=== PATIENT | male | born 1955 | race Caucasian/White ===

== ENCOUNTER → 2017-10-31 | Outpatient (CLI) | payer OTHER ==
[~2017-10-31] VITALS: Ht 182.9 cm; Wt 108.9 kg
[~2017-10-31] MED LIST: ESTRADIOL 1 MG T1 M1 PO; LISINOPRIL-HCT1 EAC2 PO; LOPRESSOR50 MG PO; METHADONE HCL 110 M1 PO; MOBIC15 MG PO; MOBIC7.5 MG PO; NEURONTIN 300300 M1 PO; OXYCODONE HCL15 MG PO; OXYCONTIN10 M1 PO; OXYMORPHONE HCL10 M1 PO; PROPRANOLOL 1010 MG PO; PROTONIX40 M1 PO; ROBAXIN 750 MG750 M1 PO; VISTARIL 25 MG25 M1 PO; ZANAFLEX4 MG PO
--- NOTE | ~2017-10-31 | HPC ---
[facility] [place] [address] PAIN MANAGEMENT CONSULTATION Name: COSMO HANNA JR Room #: REG [facility] MAlbino.#: [id number] Admission: 10/31/17 Attend Phys: Gadiel Mercedes DO Discharge: Date of : 54 Report #: [id number] THIS REPORT FOR: //name// CC: MESERET White DATE OF SERVICE: 11/01/2017 The patient is a 62-year-old gentleman, seen in consultation at the request of Dr. Frank for assistance with management of chronic pain concerns and opiate habituation tolerance and maintenance. The patient presents to the Pain Clinic today. He has an extensive records from the pain management institute[facility], having been treated by Dr. Charanjit Oneill for a number of years with opiate analgesics. Unfortunately, as we have noted with a lot of these charts, they are somewhat "cookie cutter" type templates merely noting patient is on opiate analgesics, but really failing to provide any significant physical exam or diagnostic records. The patient states he has had chronic axial back pain with pain in the hip and right leg. He has not had any back surgery. He states he has done physical therapy "in the past." States he has had chiropractic therapy "in the past." He states he does some stretches daily. He states he has had cervical epidural injections in 2009 with no efficacy. Again, no records here. He states he has been on opiate analgesics for greater than 9 years. He has been using oxycodone 15 mg 4 times a day (60 mg short-acting oxycodone equivalent to 90 mg of morphine equivalence) for the past 4 years. With this, he rates his pain still anywhere from 3-10 on a VAS. States pain is exacerbated with walking, sitting, and sleeping. Gets some relief with stretching and pain medications. The patient denies any myelopathic symptoms. No bowel or bladder continence changes and no focal weakness. REVIEW OF SYSTEMS: Complete review of systems was attached to the chart and gone over with the patient. He is . He does not smoke or drink alcohol to excess. He states he has been disabled for the past 5 years, is on workers' compensation from "back pain." He has a history of hypertension, treated with lisinopril and metoprolol. He has history of renal lithiasis. He has had a left total hip arthroplasty in 2009. Pain impact score is fairly high, averaging 46/60. PHYSICAL EXAMINATION: Reveals a 6 feet tall, 240-pound gentleman, BMI is 32.5 kg/m2. Blood pressure 135/78, pulse 57, respirations 16. Again, subjective pain score present, is 5-6 on a VAS. Cranial nerves 2-12 are grossly intact. Pupils are reactive. Extraocular muscles are intact. There is [place] [address] PAIN MANAGEMENT CONSULTATION Name: COSMO HANNA Room #: REG TIFFANIE Ross#: [id number] Admission: 10/31/17 Attend Phys: Gadiel Mercedes DO Discharge: Date of : 53 Report #: [id number] lateral gaze deviation. Cervical range of motion is full. Thyroid is unremarkable. Upper extremity strength is fairly robust and symmetric. Heart is regular and rhythmical without murmur. Lungs: Clear to auscultation. Rises from chair using armrest. He has a moderately antalgic gait, self-limits flexion to 45 degrees. Diffuse tenderness across the low back. No discrete trigger points or spasm is noted. Tender over the right SI. Lower extremity strength is 4/5 to all muscle groups tested. Patellar reflexes are symmetric, 2/4. Achilles reflexes are symmetric, 1/4. Straight leg raise is negative at approximately 90 degrees. SHERYL test is negative. Passive rotation of the hips does exacerbate some pain in the anterior thigh and groin. DIAGNOSTIC STUDIES: The only diagnostic study that I can find is somewhat dated. The patient had MRI of the lumbar spine in 2009 showing DJD at L2-L3, L3-L4 with facet hypertrophy. Did have a small right HNP at L4-L5, does not correlate with right L4 radicular symptoms at this time. MRI of the hip had showed mild to moderate DJD. ASSESSMENT: Chronic axial back pain, lumbar radiculopathy by history, chronic pain syndrome, possible component of myofascial pain requiring high-risk complex medication management, opiate habituation and tolerance. RECOMMENDATIONS: Long discussion with the patient today about therapeutic options. I pointed out that chronic use of short-term opiates are contraindicated in chronic nonmalignant pain with zero objective diagnostic data. Again, physical exam is fortunately quite unremarkable other than for subjective pain. The patient currently is habituated to approximately 90 mEq of morphine a day. Suggested we could rotate to methadone, which may avoid some of the dopamine release seen with short-acting opiates precipitating habituation. Rough equivalent at 4:1 conversion of methadone to morphine would be 22 mg of methadone. I suggest we start at methadone 10 mg b.i.d. We will get a buccal drug swab today, should be positive for hydrocodone as the sole opiate, should be no nicotine or other controlled agents present. The patient has been using Robaxin for some time. I will renew that prescription today, though he may benefit from a rotation to tizanidine. Currently, methocarbamol 750 t.i.d. prescription was generated. At next visit, we may consider addition of Cymbalta to help with myofascial component of pain. After patient left the clinic, I did get a call from the pharmacy. He was attempting to fill the methadone prescription. Unbeknownst to me, he had actually had his last oxycodone 15 mg, #120 tablets filled on 10/16/2017. I asked the pharmacy to hold the methadone prescription to 11/16/2017. I would like to see him about 4 weeks after starting the methadone. We will recheck a buccal swab at that time should be positive for methadone as a sole opiate. [facility] [address] [place] [address] PAIN MANAGEMENT CONSULTATION Name: COSMO HANNA [id number] Admission: 10/31/17 Attend Phys: Gadiel Mercedes DO Discharge: Date of : 53 Report #: [id number] Thank you for allowing me to participate in the patient's care. We did enter into an opiate consent to treat contract with the patient today. He should not be getting opiates from any other healthcare providers. <ELECTRONICALLY SIGNED> By: Gadiel Mercedes DO 11/03/17 0715 1230 [id number] Gadiel Mercedes DO /nt
[2017-10-31 13:57] VITALS: BP 135/78
== END ==
LOC: PAIN 08:23
DX: M54.16 Radiculopathy, lumbar region (principal); G89.4 Chronic pain syndrome; M79.1 Myalgia; F11.20 Opioid dependence, uncomplicated; Z79.899 Other long term (current) drug therapy

== ENCOUNTER → 2017-12-12 | Outpatient (CLI) | payer OTHER ==
[~2017-12-12] VITALS: Ht 180.3 cm; Wt 111.0 kg
--- NOTE | ~2017-12-12 | HPC ---
[facility] [address] [place] [address] PAIN MANAGEMENT CONSULTATION Name: COSMO HANNA JR Room #: REG TIFFANIE M.Marshal.#: [id number] Admission: 12/12/17 Attend Phys: Wilfrid Butterfield MD Discharge: Date of : 53 Report #: [id number] THIS REPORT FOR: //name// CC: MESERET Fernandez DATE OF SERVICE: 12/12/2017 CHIEF COMPLAINT: Here for medication renewal. FOLLOWUP HISTORY: The patient is a 62-year-old gentleman who has been seen in the Pain Clinic because of chronic axial back pain, history of lumbar radiculopathy, and myofascial pain. He has been treated with opioid medications for this condition. Pain has been problematic since 1986. He describes it as constant, aching spasms, occasionally radiating throughout his entire body. Walking is problematic. Sitting and sleeping positions can be things that exacerbate his pain. Notes that stretching and use of medications is beneficial. He has had physical therapy in the past. He tries daily stretching. He has used chiropractic treatment. He also has some hip pain. He had been treated in the past because of sciatica. He has seen Dr. Gadiel Mercedes. He has been provided medications at the last visit. He returns today for renewal of his medications. He states that he has been on opioid therapy for at least 9 to 10 years. ALLERGIES: PENICILLIN. MEDICATIONS: Protonix 40 mg 1 p.o. daily, methadone 10 mg p.o. b.i.d., methocarbamol 750 mg t.i.d., lisinopril/hydrochlorothiazide 20/25 b.i.d., metoprolol 50 mg 0.5 tabs b.i.d. CLINICAL PAIN ASSESSMENT: 1. The patient is not being treated specifically for osteoarthritis or rheumatoid arthritis. 2. Height 5 feet 11 inches, weight 244 pounds, BMI is 34. 3. Vital signs: Blood pressure 143/83, pulse 52, respiratory rate 16, room air saturation 97%. 4. Pain intensity: 10. 5. Fall risk: The patient has not fallen in the last month. 6. Blood thinner: The patient is not on a blood thinner. 7. History of hypertension: The patient is being treated for hypertension. 8. Opioid therapy greater than 6 weeks: The patient has been on opioid therapy, he states, for about 9 years. 9. Risk assessment tool. 10. Functional assessment tool. 11. Recreational drug use: The patient [place] [address] PAIN MANAGEMENT CONSULTATION Name: COSMO HANNA Room #: REG [facility]#: [id number] Admission: 12/12/17 Attend Phys: Wilfrid Butterfield MD Discharge: Date of : 53 Report #: [id number] 12. Tobacco: The patient is a former smoker. 13. Alcohol use: The patient denies frequent alcohol use. PHYSICAL EXAMINATION: GENERAL: The patient is a well-developed, white male. He appears his stated age. ORIENTATION: The patient is alert and oriented x 3. AFFECT: The patient's affect appears appropriate. HEENT: Normocephalic, atraumatic. Extraocular eye muscles intact. Hearing is within normal limits. Sclerae are clear. NECK: Without JVD. HEART: Regular rate. ABDOMEN: Nontender. MUSCULOSKELETAL: Appears generally within normal limits without significant kyphosis, scoliosis or lordosis. The patient arises from his chair using armrest. He has a moderately antalgic gait. SHERYL test negative. IMPRESSION: 1. Chronic pain with back pain and arm pain with some numbness in the fingers. 2. Hypertension. 3. Cervical pain with MRI showing [id number] foraminal narrowing at multiple levels. 4. Low back pain with multilevel degenerative processes with possible acute annular tear involving L2-L3 disk, degenerative changes prominent at L4-L5 level with mild spinal stenosis. RECOMMENDATIONS: We discussed treatment options with the patient. He states his medication has continued to be helpful. States he keeps his medications in a guarded area. He is aware of the use of opioids and they are prominent in the news. States that he is keeping his medications in a guarded area, he uses them for pain control. Denies getting medication from any other physician. Denies any problem with thinking, problems with GI affecting the gastrointestinal tract. Overall, he would like to have his medications renewed and agrees to the stipulations of the Pain Clinic. We have renewed his medications. A script for Mobic 15 mg 1 p.o. daily, methadone 10 mg b.i.d., and Robaxin 750 mg 1 p.o. t.i.d. have been written. He will call us if he has any problems with his medications. We would like to thank you for letting us participate in his care. We hope he continues to improve. <ELECTRONICALLY SIGNED> By: Wilfrid Butterfield MD 01/07/18 0851 [id number] [id number] Wilfrid Butterfield MD /nt
[2017-12-12 11:36] VITALS: BP 143/83
== END ==
LOC: PAIN 11-24 13:43
DX: G89.29 Other chronic pain (principal); M48.061 Spinal stenosis, lumbar region without neurogenic claudication; M47.896 Other spondylosis, lumbar region; F11.90 Opioid use, unspecified, uncomplicated; I10 Essential (primary) hypertension

== ENCOUNTER → 2018-01-16 | Outpatient (CLI) | payer OTHER ==
[~2018-01-16] VITALS: Ht 154.9 cm; Wt 108.0 kg
--- NOTE | ~2018-01-16 | HPC ---
[facility] [address] [address] PAIN MANAGEMENT CONSULTATION Name: COSMO HANNA JR Room #: REG [facility].#: [id number] Admission: 01/16/18 Attend Phys: Gadiel Mercedes DO Discharge: Date of : 53 Report #: [id number] THIS REPORT FOR: //name// CC: MESERET Mercedes DATE OF SERVICE: 01/16/2018 The patient is a 62-year-old gentleman originally seen in consultation 10/31/2017 on higher dose opiate analgesics including oxycodone 15 mg 4 times a day for the past 4 years. Ultimately, I elected to rotate to methadone 10 mg b.i.d. The patient returns to pain clinic today, doing well on current medication. He uses half a tablet in the morning (5 mg), 5 mg late afternoon and 10 mg at bedtime. He is doing well on his current medication. Denies any problems with daytime somnolence, mental acuity changes, constipation. Notes his pain is a 4 on VAS. Primary pain across the low back, exacerbated with standing, walking and bending. Does not use an assistance device (cane or walker). PHYSICAL EXAMINATION: Shows a 62-year-old gentleman, BMI is elevated at 45 kilograms per meter squared. Vital signs stable as noted in the EMR. Subjective pain score is 4 on VAS. Medication list was reconciled. We had signed an opiate consent to treat contract 11/01/2017. Functional assessment tool score is 51/70. Rises from chair using armrest. Diffuse tenderness across the low back, modestly antalgic gait. No discrete trigger points noted. ASSESSMENT: Symptomatic axial back pain, lumbar radiculopathy requiring complex medication management. RECOMMENDATION: 1. We will check a random buccal drug swab today. It should be positive for methadone as the sole opiate. 2. Renew methadone 10 mg b.i.d. The patient has some muscle spasm. We talked about adding Robaxin as a muscle relaxant. Unfortunately, this was quite costly. I did have the nurse call in baclofen 10 mg t.i.d. for spasm. We reviewed the fact that opiate medications are being used to provide analgesia adequate to support activities of daily living, not attempting to achieve a specific pain score on the 0-10 Visual Analog Scale. The current opiate medications are providing sufficient analgesia to allow the patient to participate in activities of daily living. The patient is not exhibiting any aberrant behavior suggestive of drug diversion. The patient is not having any adverse reactions to medications. The patient is not suffering from daytime somnolence or mental acuity changes. The patient is managing opiate-induced constipation with appropriate jndw-nem-hbxguty agents and dietary considerations. The patient was counseled on concern for caution with operating [address] [address] PAIN MANAGEMENT CONSULTATION Name: COSMO HANNA Room #: REG [facility] Vandana#: [id number] Admission: 01/16/18 Attend Phys: Gadiel Mercedes DO Discharge: Date of : 53 Report #: [id number] a motor vehicle while using opiate medications. A physical exam was performed and the patient's functional status was evaluated. All patients with back pain were advised against the bed rest greater than 4 days and were advised to return to normal activities. Pain score assessment was noted and the treatment plan was reviewed with the patient. All current medications, both prescribed and OTC were reviewed and reconciled on the electronic medical record. Tobacco screening was accomplished and smoking cessation was advised when indicated. BMI was noted and diet/exercise modification was recommended for all patients following outside normal parameters. I reviewed with the patient today their responsibilities to safeguard prescription medications, reviewed their responsibility to utilize medications only as prescribed by the physician. They are to seek and receive pain medications only from 1 physician group ( [facility]). They are to use 1 pharmacy and keep the clinic informed if they change pharmacies. Their responsibilities include making followup visits in a timely fashion and to avoid abrupt discontinuation of medication usage. Their responsibilities further include bringing their medications (bottles from the pharmacy with residual pills) to the visit for possible confirmation of pill counts and the patient understands it is their responsibility to submit to random drug screens to ensure both that the medications prescribed are present, and that no other controlled substances are present. All prescriptions provided today were generated electronically. <ELECTRONICALLY SIGNED> By: Gadiel Mercedes DO 01/17/18 0954 1231 19 Gadiel Mercedes DO /nt
[2018-01-16 10:37] VITALS: BP 138/78
== END ==
LOC: PAIN 07:16
DX: M54.16 Radiculopathy, lumbar region (principal); Z79.899 Other long term (current) drug therapy

== ENCOUNTER → 2018-03-13 | Outpatient (CLI) | payer OTHER ==
[~2018-03-13] VITALS: Ht 177.8 cm; Wt 103.0 kg
--- NOTE | ~2018-03-13 | HPC ---
[facility] [address] [place] [address] PAIN MANAGEMENT CONSULTATION Name: COSMO HANNA JR Room #: REG [facility] M..#: [id number] Admission: 03/13/18 Attend Phys: Gadiel Mercedes DO Discharge: Date of : 53 Report #: [id number] THIS REPORT FOR: //name// CC: MESERET RYDER Physician staff Gadiel Mercedes DATE OF SERVICE: 03/13/2018 The patient is a 62-year-old gentleman being treated for chronic axial back pain, history of polycystic kidney disease precluding NSAID use, history of hepatitis C. Came to me on higher dose opiates, consultation on 10/31/2017. He was using oxycodone 15 mg 4 times a day equivalent to approximately 90 mg of morphine. We rotated to methadone, currently taking methadone 10 mg b.i.d. (roughly equivalent 80 mg of morphine) and he takes Robaxin 750 t.i.d. for muscle relaxation. Last random drug screen on 01/16/2018 was positive for prescribed medications and no others. Returns to Pain Clinic today noting pain continues to be problematic, did have acute exacerbation of some right-sided low back pain without antecedent trauma. Radiates in the buttock and posterior thigh, really not down the leg. Rates the pain a 5-6 on a VAS. No problems with daytime somnolence, mental acuity changes, or constipation. We reviewed the fact that opiate medications are being used to provide analgesia adequate to support activities of daily living, not attempting to achieve a specific pain score on the 0-10 Visual Analog Scale. The current opiate medications are providing sufficient analgesia to allow the patient to participate in activities of daily living. The patient is not exhibiting any aberrant behavior suggestive of drug diversion. The patient is not having any adverse reactions to medications. The patient is not suffering from daytime somnolence or mental acuity changes. The patient is managing opiate-induced constipation with appropriate fkfg-uvi-dvfqlxh agents and dietary considerations. The patient was counseled on concern for caution with operating a motor vehicle while using opiate medications. A physical exam was performed and the patient's functional status was evaluated. All patients with back pain were advised against the bed rest greater than 4 days and were advised to return to normal activities. Pain score assessment was noted and the treatment plan was reviewed with the patient. All current medications, both prescribed and OTC were reviewed and reconciled on the electronic medical record. Tobacco screening was accomplished and smoking cessation was advised when indicated. BMI was noted and diet/exercise modification was recommended for all patients following outside normal parameters. [address] [address] PAIN MANAGEMENT CONSULTATION Name: COSMO HANNA JR Room #: REG [facility] Vandana#: [id number] Admission: 03/13/18 Attend Phys: Gadiel Mercedes DO Discharge: Date of : 53 Report #: [id number] I reviewed with the patient today their responsibilities to safeguard prescription medications, reviewed their responsibility to utilize medications only as prescribed by the physician. They are to seek and receive pain medications only from 1 physician group ( [facility]). They are to use 1 pharmacy and keep the clinic informed if they change pharmacies. Their responsibilities include making followup visits in a timely fashion and to avoid abrupt discontinuation of medication usage. Their responsibilities further include bringing their medications (bottles from the pharmacy with residual pills) to the visit for possible confirmation of pill counts and the patient understands it is their responsibility to submit to random drug screens to ensure both that the medications prescribed are present, and that no other controlled substances are present. All prescriptions provided today were generated electronically. PHYSICAL EXAMINATION: Shows 62-year-old gentleman, BMI is 32.6 kg/m2. Vital signs stable as noted in the EMR. Rises from chair using the armrest. Gait is generally tandem, very tender over the right SI. Has a positive SHERYL and Gaenslen's test on the right side. Left side exam was deferred due to history of total hip arthroplasty. Lower extremity strength is preserved. Straight leg raise is negative. ASSESSMENT: Symptomatic chronic axial back pain, new diagnosis of right SI mediated pain, requiring complex medication management. Comorbidity includes hepatitis C and polycystic kidney disease. RECOMMENDATIONS: After discussion with the patient, he would like to continue methadone 10 mg b.i.d. I have taken the liberty of writing for 2 months of current medication, Robaxin 750 t.i.d., and rare use meloxicam 7.5 on a nondaily basis. I have taken the liberty of writing for 2 months of current medication. Follow up with one of my Pain partners at that time, earlier if needed. We did talk about moving forward with SI joint injection (right side) today. The patient would like to defer interventional therapy at this time. He tells me he prior had many epidural injections at another pain clinic, all with no efficacy. <ELECTRONICALLY SIGNED> By: Gadiel Mercedes DO 03/16/18 0710 1231 [id number] Gadiel Mercedes DO /nt
[2018-03-13 10:51] VITALS: BP 135/75
== END ==
LOC: PAIN 06:48
DX: M54.5 Low back pain (principal); Z79.899 Other long term (current) drug therapy

== ENCOUNTER → 2018-05-13 | Outpatient (CLI) | payer OTHER ==
[~2018-05-13] VITALS: Ht 177.8 cm; Wt 104.4 kg
--- NOTE | ~2018-05-13 | HPC ---
[facility] [address] [place] [address] PAIN MANAGEMENT CONSULTATION Name: COSMO HANNA JR Room #: REG [facility] M.R.#: [id number] Admission: 05/13/18 Attend Phys: Juan Antonio Mercedes DO Discharge: Date of : 53 Report #: [id number] THIS REPORT FOR: //name// CC: Juan Antonio Frank DO Physician staff DATE OF SERVICE: 05/13/2018 CHIEF COMPLAINT: Low back pain. HISTORY OF PRESENT ILLNESS: As you know, the patient is a 62-year-old male with longstanding history of chronic axial back pain who was originally referred to our service on extremely high dose of opioids. The patient has successfully been weaned down to just under the CDCs recommended guidelines for maximum dosing. He is taking methadone 10 mg twice a day, which equates to 60 morphine equivalents a day and continues to utilize meloxicam meth and methocarbamol for as needed pain issues. He returns today in followup visit requesting refill on medications. Despite this elevated dose of opioid medication, he is placing pain score 5-6/10. He has noted no changes in his functional capacity with the medications. He indicates no change in overall pain. He returns requesting refill on medications. ALLERGIES: PENICILLIN. CURRENT MEDICATIONS: Methadone 10 mg twice a day, methocarbamol 750 mg 3 times a day p.r.n., pantoprazole 10 mg 2 tabs twice a day, meloxicam 7.5 mg once a day, lisinopril/hydrochlorothiazide 20/25 twice a day. SOCIAL HISTORY: The patient denies tobacco, alcohol, IV or illicit drug use. 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 He is accompanied by his who is present in room today. IMAGING: There is no new imaging available. K-TRACS was completed, both on the [place] side and [place] side; it does show positive for methadone, received appropriately by Dr. Gadiel Mercedes for the past four months. PHYSICAL EXAMINATION: VITAL SIGNS: Blood pressure 145/79, pulse is 52, respiratory rate 14 and unlabored. The patient is 98% on room air. Height 5 feet 10 inches tall, weight 230.2 pounds, BMI calculated 33.0. GENERAL: Well-developed, well-nourished, well-hydrated 62-year-old male, appears much older than stated age, placing current pain score at 5-6/10. [facility] [address] [place] [address] PAIN MANAGEMENT CONSULTATION Name: COSMO HANNA JR Room #: REG [facility]#: [id number] Admission: 05/13/18 Attend Phys: Juan Antonio Mercedes DO Discharge: Date of : 53 Report #: [id number] HEENT: Normocephalic, atraumatic. Pupils equal, round, reactive to light. Speech fluent. EXTREMITIES: Show no clubbing, no cyanosis, no edema. MUSCULOSKELETAL: Gait appears normal. Positive Fabere's sign and Modified Gaenslen's on the right. Left side is normal. There is well-healed surgical scar from total hip arthroplasty. Palpatory tenderness over the paraspinal musculature. No spinous process tenderness. ASSESSMENT: 1. Symptomatic chronic axial back pain. 2. Sacroiliac joint dysfunction. 3. Opioid dependency. PLAN: 1. The patient returns today in followup visit for continuation of medication therapy. He is currently taking methadone 10 mg twice a day, equates to 60 morphine equivalents a day, also taking methocarbamol and meloxicam. He has requested refills on this medication be provided today. 2. The patient was provided prescription of methadone 10 mg dose 1 tab p.o. b.i.d., number 60, releases today. 3. The patient was provided a prescription of methocarbamol 750 mg dose 1 tab p.o. t.i.d., I have given the patient number 90, no refills. 4. The patient was provided refill prescription of meloxicam 7.5 mg once a day, number 30, no refills. 5. We will see the patient back in followup visit next month. He is to discuss with his primary care physician the likelihood that they will need to take over medication management in the very near future as we have stabilized the patient on the medication. He will discuss this with his PCP. Need to find someone to write mcfp opioid medication as this does not require a pain specialist to provide these kind of medications. We are here to adjust the medications. We reviewed the fact that opiate medications are being used to provide analgesia adequate to support activities of daily living, not attempting to achieve a specific pain score on the 0-10 Visual Analog Scale. The current opiate medications are providing sufficient analgesia to allow the patient to participate in activities of daily living. The patient is not exhibiting any aberrant behavior suggestive of drug diversion. The patient is not having any adverse reactions to medications. The patient is not suffering from daytime somnolence or mental acuity changes. The patient is managing opiate-induced constipation with appropriate ztqb-pnh-xlmokmz agents and dietary considerations. The patient was counseled on concern for caution with operating a motor vehicle while using opiate medications. A physical exam was performed and the patient's functional status was evaluated. All patients with back pain were advised against the bed rest greater than 4 days and were advised to return to normal activities. Pain score assessment was [facility] [address] [place] [address] PAIN MANAGEMENT CONSULTATION Name: COSMO HANNA JR Room #: REG [facility] Renetta.Marshal.#: [id number] Admission: 05/13/18 Attend Phys: Juan Antonio Mercedes DO Discharge: Date of : 53 Report #: [id number] noted and the treatment plan was reviewed with the patient. All current medications, both prescribed and OTC were reviewed and reconciled on the electronic medical record. Tobacco screening was accomplished and smoking cessation was advised when indicated. BMI was noted and diet/exercise modification was recommended for all patients following outside normal parameters. I reviewed with the patient today their responsibilities to safeguard prescription medications, reviewed their responsibility to utilize medications only as prescribed by the physician. They are to seek and receive pain medications only from 1 physician group ( [facility]). They are to use 1 pharmacy and keep the clinic informed if they change pharmacies. Their responsibilities include making followup visits in a timely fashion and to avoid abrupt discontinuation of medication usage. Their responsibilities further include bringing their medications (bottles from the pharmacy with residual pills) to the visit for possible confirmation of pill counts and the patient understands it is their responsibility to submit to random drug screens to ensure both that the medications prescribed are present, and that no other controlled substances are present. All prescriptions provided today were generated electronically. By: [id number] Juan Antonio Mercedes DO /nt
[2018-05-13 11:15] VITALS: BP 145/79
== END ==
LOC: PAIN 07:02
DX: M54.5 Low back pain (principal); M53.3 Sacrococcygeal disorders, not elsewhere classified; G89.29 Other chronic pain; F11.20 Opioid dependence, uncomplicated; Z79.899 Other long term (current) drug therapy

== ENCOUNTER → 2018-06-23 | Outpatient (CLI) | payer OTHER ==
[~2018-06-23] VITALS: Ht 177.8 cm; Wt 100.2 kg
--- NOTE | ~2018-06-23 | HPC ---
[facility] [address] [place] [address] PAIN MANAGEMENT CONSULTATION Name: COSMO HANNA JR Room #: REG [facility] M..#: [id number] Admission: 06/23/18 Attend Phys: Juan Antonio Mercedes DO Discharge: Date of : 53 Report #: [id number] THIS REPORT FOR: //name// CC: Juan Antonio Frank DO Physician staff DATE OF SERVICE: 06/23/2018 REFERRING PHYSICIAN: May Frank D.O. CHIEF COMPLAINT: Right shoulder pain and chronic low back pain. HISTORY OF PRESENT ILLNESS: As you know, the patient is a 63-year-old male who has returned today in followup visit to undergo right intra-articular shoulder injection under fluoroscopic guidance. The patient has had longstanding right shoulder pain treated with physical therapy and medication management. Unfortunately, his symptoms have progressed. He returns to undergo a right intra-articular shoulder injection today in hopes of improving pain. He indicates pain is dull, aching, grinding in sensation, places current pain score at 8/10 and states pain is exacerbated with picking up objects with his right arm. Medications, stretching appears to improve pain mildly. He has returned today to undergo right intra-articular shoulder injection in hopes of improving right shoulder pain. ALLERGIES: PENICILLIN. CURRENT MEDICATIONS: Methadone 10 mg twice a day, methocarbamol 750 mg t.i.d., pantoprazole 10 mg 2 tabs 3 times a day, Meloxicam 7.5 mg once a day and lisinopril/hydrochlorothiazide 20/12.5 mg twice a day. SOCIAL HISTORY: The patient denies tobacco, alcohol or IV or illicit drug use. 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 IMAGING DATA: No new imaging available. PHYSICAL EXAMINATION: VITAL SIGNS: Blood pressure 129/77, pulse 54 and respiratory rate 18 and unlabored. The patient is 97% on room air. Height 5 feet 10 inches tall, weight 220.8 pounds and BMI calculated 31.7. GENERAL: Well-developed, well-nourished, well-hydrated, 63-year-old male. He appears his stated age. He is placing pain score today 8/10. HEENT: Normocephalic and atraumatic. Pupils equal, round and reactive to light. EXTREMITIES: Show no clubbing, no cyanosis and no edema. [address] [address] PAIN MANAGEMENT CONSULTATION Name: COSMO HANNA JR [facility] [id number] Admission: 06/23/18 Attend Phys: Juan Antonio Mercedes DO Discharge: Date of : 53 Report #: [id number] MUSCULOSKELETAL: Upper extremity strength appears equal and symmetrical, 5/5. Active and passive range of motion of right shoulder is met with intensification of pain. There is limited range of motion of the right shoulder secondary to pain generation. ASSESSMENT: 1. Right shoulder pain. 2. Right shoulder osteoarthritis. PLAN: 1. The patient has returned today in followup visit to discuss treatment options for right shoulder pain. We have received authorization for the patient to undergo an intra-articular shoulder injection in hopes of improving pain. The patient and I discussed at length the risks of this procedure. These risks include but are not necessarily limited to bleeding, bruising, infection, worsening pain, no relief of pain, also risk of temporary or permanent muscle weakness, temporary or permanent nerve damage, possible joint destruction and . The patient states understood and wished to proceed. 2. No medication changes made at today's visit. The patient to continue current medical therapy as previously prescribed. 3. We will see the patient back in followup visit on an as needed basis for medication management on our established appointment date. He may return earlier if he wishes to undergo next in the series of right intra-articular shoulder injections. PROCEDURE NOTE DESCRIPTION OF PROCEDURE: Right intra-articular shoulder injection under fluoroscopic guidance. After obtaining written consent, the patient was taken back to fluoroscopy suite, placed in a supine position. Image intensifier/C-arm was brought into position over the right shoulder and AP imaging was obtained. The area was prepped and draped in aseptic fashion using chlorhexidine. A sterile marker was then placed over the injection site and the skin was anesthetized with 3 mL of 1% lidocaine utilizing a 27-gauge 1-1/4 inch needle. A 25-gauge 2-inch needle was then advanced into the right shoulder under fluoroscopic guidance. Needle was advanced until reaching the proximal head of the humerus. Needle was then retracted approximately 1 mm and aspiration noted to be negative for heme. After negative aspiration for heme, 0.4 mL of Omnipaque injected demonstrating excellent right shoulder arthrogram. After negative aspiration for heme, 3 mL of a solution containing 1 mL 40 mg per mL, 40 mg total triamcinolone, 2 mL bupivacaine 0.5% injected slowly. Needle retracted mcc, flushed with 1 mL of 1% lidocaine and removed. Sterile bandage placed over injection site. No new motor deficits present in the upper [facility] [address] [place] [address] PAIN MANAGEMENT CONSULTATION Name: COSMO HANNA JR Room #: REG [facility]#: [id number] Admission: 06/23/18 Attend Phys: Juan Antonio Mercedes DO Discharge: Date of : 53 Report #: [id number] extremity following the procedure. The patient tolerated procedure well, carefully escorted to recovery room in stable condition. No apparent complications. After meeting discharge criteria, the patient discharged home. <ELECTRONICALLY SIGNED> By: Juan Antonio Mercedes DO 06/30/18 [id number] Juan Antonio Mercedes DO /nt
[2018-06-23 12:31] VITALS: BP 129/77
== END | disposition home or self-care (01) ==
LOC: PAIN 07:16
DX: M19.011 Primary osteoarthritis, right shoulder (principal); G89.29 Other chronic pain; Z87.891 Personal history of nicotine dependence; Z88.0 Allergy status to penicillin; Z79.899 Other long term (current) drug therapy; M54.5 Low back pain

== ENCOUNTER → 2018-08-12 | Outpatient (CLI) | payer OTHER ==
[~2018-08-12] VITALS: Ht 177.8 cm; Wt 101.1 kg
--- NOTE | ~2018-08-12 | HPC ---
[facility] [address] [place] [address] PAIN MANAGEMENT CONSULTATION Name: COSMO HANNA JR Room #: REG [facility].#: [id number] Admission: 08/12/18 Attend Phys: Juan Antonio Mercedes DO Discharge: Date of : 53 Report #: [id number] THIS REPORT FOR: //name// CC: Juan Antonio Frank DO Physician staff DATE OF SERVICE: 08/12/2018 REFERRING PHYSICIAN: May Frank DO CHIEF COMPLAINT: Right shoulder pain, chronic low back pain. HISTORY OF PRESENT ILLNESS: As you know, the patient is a 63-year-old male, returning in followup visit having undergone a right intra-articular shoulder injection at our last visit. He reports about 100% improvement in overall pain lasting for nearly 3 weeks. Unfortunately, he has had a slow and progressive return of symptoms. He states his symptoms began with increasing activity. He is placing pain score 4/10. He states his pain is aching, dull, grinding and ice pick in sensation, exacerbated with sitting, standing, walking, picking up his right arm, lifting anything with his right arm. Medications and stretching tend to improve pain. He returns today in followup visit for refill of medication management for which he takes methadone 10 mg twice a day and utilizes methocarbamol for muscle spasming and meloxicam for anti-inflammatory effects. He is denying any side effects to the therapy at this time. ALLERGIES: PENICILLIN. CURRENT MEDICATIONS: Methadone 10 mg twice a day, methocarbamol 750 mg 3 times a day, pantoprazole 10 mg 2 tabs 3 times a day, meloxicam 7.5 mg once a day, lisinopril/hydrochlorothiazide 20/12.5 mg twice a day. SOCIAL HISTORY: The patient denies tobacco, alcohol, IV or illicit drug use. 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 He is accompanied by his present in room today. IMAGING: No new imaging available. PQRS: The patient has osteoarthritis in bilateral shoulders and low back. No rheumatoid arthritis, placing pain intensity 4/10. He is not a fall risk, has not had a fall in the last 3 months. He is not on blood thinners. He is treated for hypertension. He has been on opioids for greater than 6 weeks. He has a low risk for opioid addiction. Pain impact score 51/70, severe, interference of daily activities secondary to pain. [address] [address] PAIN MANAGEMENT CONSULTATION Name: COSMO HANNA JR Room #: REG [facility]#: [id number] Admission: 08/12/18 Attend Phys: Juan Antonio Mercedes DO Discharge: Date of : 53 Report #: [id number] PHYSICAL EXAMINATION: VITAL SIGNS: Blood pressure 125/81, pulse 55, respiratory rate 16 and unlabored. The patient is 97% on room air. Height 5 feet 10 inches tall, weight 222.9 pounds, BMI calculated 32.0. GENERAL: Well-developed, well-nourished, well-hydrated 63-year-old male, appears his stated age, placing current pain score around 4/10. HEENT: Normocephalic, atraumatic. Pupils equal, round, reactive to light. Speech fluent. EXTREMITIES: Show no clubbing, no cyanosis, no edema. MUSCULOSKELETAL: Upper extremity strength remains symmetrical 5/5. Active and passive range of motion of the right shoulder causes intensification of pain. There is limited range of motion due to pain generation on the right shoulder, negative left. ASSESSMENT: 1. Right shoulder pain. 2. Right shoulder osteoarthritis. 3. Chronic low back pain. 4. Osteoarthritis of the lumbar spine. 5. Chronic intractable pain. 6. Complicated medication therapy. PLAN: 1. The patient returns today in followup visit having noticed good efficacy with the intra-articular shoulder injection on the right. Unfortunately, his symptoms have begun to return. He is now placing pain score 4/10. We discussed with the patient that options for treatment remain the same as previous from the shoulder standpoint, medication management, limiting activity, intra-articular shoulder injections or surgical options. The patient at this time wishes to avoid surgery. We will continue medication therapy, but we will consider possible repeat right shoulder injection in the near future if his pain does continue to return to a level of 8/10. 2. The patient was provided a prescription of meloxicam 7.5 mg 1 tab p.o. q. day. I have given the patient #30 tablets with 2 refills, 3 months' worth of medication. The patient denies dyspepsia, worsening of blood pressure, lower extremity edema with its use. 3. The patient was provided prescription of methocarbamol 750 mg dose 1 tab p.o. t.i.d. p.r.n. muscle spasms, #90 with 2 refills. 4. The patient was provided prescription of methadone 10 mg dose 1 tab p.o. b.i.d. #60 with releases of today and 4 weeks from today, 2 months' worth of medication. The patient was advised to take the medication as directed. He is not to take this medication on an as needed basis. We reviewed the fact that opiate medications are being used to provide analgesia adequate to support activities of daily living, not attempting to achieve a specific pain score on the 0-10 Visual Analog Scale. The current opiate [facility] [address] [place] [address] PAIN MANAGEMENT CONSULTATION Name: COSMO HANNA JR Room #: REG [facility]#: [id number] Admission: 08/12/18 Attend Phys: Juan Antonio Mercedes DO Discharge: Date of : 53 Report #: [id number] medications are providing sufficient analgesia to allow the patient to participate in activities of daily living. The patient is not exhibiting any aberrant behavior suggestive of drug diversion. The patient is not having any adverse reactions to medications. The patient is not suffering from daytime somnolence or mental acuity changes. The patient is managing opiate-induced constipation with appropriate kgtb-peh-occdemr agents and dietary considerations. The patient was counseled on concern for caution with operating a motor vehicle while using opiate medications. A physical exam was performed and the patient's functional status was evaluated. All patients with back pain were advised against the bed rest greater than 4 days and were advised to return to normal activities. Pain score assessment was noted and the treatment plan was reviewed with the patient. All current medications, both prescribed and OTC were reviewed and reconciled on the electronic medical record. Tobacco screening was accomplished and smoking cessation was advised when indicated. BMI was noted and diet/exercise modification was recommended for all patients following outside normal parameters. I reviewed with the patient today their responsibilities to safeguard prescription medications, reviewed their responsibility to utilize medications only as prescribed by the physician. They are to seek and receive pain medications only from 1 physician group ( [facility]). They are to use 1 pharmacy and keep the clinic informed if they change pharmacies. Their responsibilities include making followup visits in a timely fashion and to avoid abrupt discontinuation of medication usage. Their responsibilities further include bringing their medications (bottles from the pharmacy with residual pills) to the visit for possible confirmation of pill counts and the patient understands it is their responsibility to submit to random drug screens to ensure both that the medications prescribed are present, and that no other controlled substances are present. All prescriptions provided today were generated electronically. 5. We will see the patient back in followup visit in 2 months for medication management, earlier if intra-articular shoulder injection is necessary. By: [id number] Juan Antonio Mercedes DO /nt
[2018-08-12 11:01] VITALS: BP 125/81
== END ==
LOC: PAIN 07:23
DX: M54.5 Low back pain (principal); M25.511 Pain in right shoulder; Z79.891 Long term (current) use of opiate analgesic; Z79.899 Other long term (current) drug therapy

== ENCOUNTER → 2018-10-07 | Outpatient (CLI) | payer OTHER ==
[~2018-10-07] VITALS: Ht 177.8 cm; Wt 101.2 kg
[2018-10-07 11:30] VITALS: BP 143/74
--- NOTE | 2018-10-07 11:33 | NUR ---
Pain Clinic Assessment: 1. History of Osteoarthritis: Not Applicable History of Rheumatoid Arthritis: Not Applicable 2. Height: 5 ft. 10 in. 177.8 cm. Weight: 223.0 lb. oz. 101.152 kg. Patient's BMI: 32.0 3. Vital Signs: BP: 143/74 Pulse: 54 Resp: 16 Temp: 02 Sat: 97 ECG Mon: 4. Pain Intensity: 4 5. Fall Risk: Dizziness: N Needs help standing or walking: N Fallen in the last 3 months: N Fall risk comments: 6. Patient on Blood Thinner: None 7. History of Hypertension: Y 8. Opioid Therapy greater than 6 weeks: Y Opiate Contract Signed: 10/31/17 9. Risk Assessment Tool Provided: LOW RISK 10/01 10. Functional Assessment Tool: 11. Recreational Drug Use: Never Drug Type: Tobacco Use: Former Smoker Tobacco Type: Amount or Packs/day: How Many Years: Alcohol Use: No Frequency: Quant:
--- NOTE | 2018-10-07 11:33 | NUR ---
Document wound assessment on appropriate Wound Pressure, Monitor intervention!
== END ==
LOC: PAIN 07:02
DX: M54.5 Low back pain (principal); M25.511 Pain in right shoulder; M25.512 Pain in left shoulder; Z79.899 Other long term (current) drug therapy

== ENCOUNTER → 2018-12-02 | Outpatient (CLI) | payer OTHER ==
[~2018-12-02] VITALS: Ht 177.8 cm; Wt 105.7 kg
[~2018-12-02] MED LIST changes: +REMERON 30 MG T30 M1 PO
[2018-12-02 11:04] VITALS: BP 169/94
--- NOTE | 2018-12-02 11:07 | NUR ---
Pain Clinic Assessment: 1. History of Osteoarthritis: Not Applicable History of Rheumatoid Arthritis: Not Applicable 2. Height: 5 ft. 10 in. 177.8 cm. Weight: 233.0 lb. oz. 105.688 kg. Patient's BMI: 33.4 3. Vital Signs: BP: 169/94 Pulse: 58 Resp: 18 Temp: 02 Sat: 99 ECG Mon: 4. Pain Intensity: 4 5. Fall Risk: Dizziness: N Needs help standing or walking: N Fallen in the last 3 months: N Fall risk comments: 6. Patient on Blood Thinner: None 7. History of Hypertension: Y 8. Opioid Therapy greater than 6 weeks: Y Opiate Contract Signed: 10/31/17 9. Risk Assessment Tool Provided: LOW RISK 1 10. Functional Assessment Tool: 11. Recreational Drug Use: Never Drug Type: Tobacco Use: Former Smoker Tobacco Type: Amount or Packs/day: How Many Years: Alcohol Use: No Frequency: Quant:
--- NOTE | 2018-12-08 07:52 | HPC ---
[facility] [address] [place] [address] PAIN MANAGEMENT CONSULTATION Name: COSMO HNANA JR Room #: REG [facility] M..#: [id number] Admission: 12/02/18 ������������������ Attend Phys: Juan Antonio Mercedes DO Discharge: ������������������ Date of : 53 Report #: [id number] THIS REPORT FOR: //name// CC: Juan Antonio Frank DATE OF SERVICE: 12/02/2018 CHIEF COMPLAINT: Right shoulder pain, chronic low back pain. HISTORY OF PRESENT ILLNESS: As you know, the patient is a 63-year-old male who returns today in followup visit with continued right shoulder pain secondary to osteoarthritis and progressively worsening axial back pain due to facet arthropathy of the lumbar spine. He returns today in followup visit stating pain level of 4/10. States his pain is chronic in nature, describes the pain as aching, dull, grinding and a sensation of ice pick in the right shoulder when utilizing this upper extremity. He states the standing, walking, sitting, picking up things with his arm exacerbates symptoms; medications and stretching tends to improve pain. He returns today requesting refill of medications to continue analgesic benefit for which he states he receives greater than 50% improvement. He denies new injury or trauma that may have led to continuation of symptoms. ALLERGIES: PENICILLIN. CURRENT MEDICATIONS: Methadone 10 mg twice a day, methocarbamol 750 mg 3 times a day, pantoprazole 10 mg 2 tabs 3 times a day, meloxicam 7.5 mg once a day, lisinopril/hydrochlorothiazide 20/12.5 mg b.i.d. SOCIAL HISTORY: The patient denies tobacco, alcohol, IV or illicit drug use. He is a retired environmental services assistant, he is retired about 5 years ago. He is unaccompanied today. IMAGING: No new imaging available. PQRS: The patient has known bilateral osteoarthritis and lumbar spine osteoarthritis. No rheumatoid arthritis. He is placing pain intensity today at 4/10. He is not a fall risk, has not had a fall in the last 3 months. He is not on blood thinners, but is treated for hypertension. He is on long-term opioid medication with a low opioid addiction potential. He is placing pain impact score 51/70, severe interference of daily activities secondary to pain. PHYSICAL EXAMINATION: VITAL SIGNS: Blood pressure 169/94, pulse is 58, respiratory rate 18 and unlabored. The patient is 99% on room air. Height 5 feet 10 inches tall, [facility] [address] [place] [address] PAIN MANAGEMENT CONSULTATION Name: COSMO HANAN JR Room #: REG [facility]#: [id number] Admission: 12/02/18 ������������������ Attend Phys: Juan Antonio Mercedes DO Discharge: ������������������ Date of : 53 Report #: [id number] weight 233 pounds, BMI calculated 33.4. GENERAL: Well-developed, well-nourished, well-hydrated 63-year-old male appearing stated age, placing current pain score 4/10. HEENT: Normocephalic, atraumatic. Pupils equal, round, reactive to light. Speech fluent. EXTREMITIES: Show no clubbing, no cyanosis, no edema. MUSCULOSKELETAL: Upper extremity strength and muscle bulk and tone are equal and symmetrical. He has slight giveaway strength noted with shoulder abduction on the right when compared to left. There is mild restriction of motion of the right shoulder when compared to left. Pain is elicited with rotational component of movement. Intact to light touch from L1 through S2 dermatomes. There is palpatory tenderness noted over the paraspinal musculature of lower lumbar spine, no spinous process tenderness. Seated straight leg raising negative. ASSESSMENT: 1. Right shoulder pain. 2. Right shoulder osteoarthritis. 3. Chronic low back pain. 4. Facet arthropathy of the lumbar spine. 5. Lumbosacral spondylosis without radicular symptoms. 6. Opioid dependency. 7. Complicated medication management. 8. Chronic intractable pain. PLAN: 1. The patient returns today in followup visit requesting continuation of his methadone for which he takes 2 tabs per day for pain control. This is in conjunction with his Robaxin appears to be doing very well from a pain standpoint. He takes meloxicam 7.5 mg once a day and has requested a 3-month prescription of this medication as well as Robaxin. He has returned for these adjustments in medication management. 2. We reviewed the fact that opiate medications are being used to provide analgesia adequate to support activities of daily living, not attempting to achieve a specific pain score on the 0-10 Visual Analog Scale. The current opiate medications are providing sufficient analgesia to allow the patient to participate in activities of daily living. The patient is not exhibiting any aberrant behavior suggestive of drug diversion. The patient is not having any adverse reactions to medications. The patient is not suffering from daytime somnolence or mental acuity changes. The patient is managing opiate-induced constipation with appropriate [id number] agents and dietary considerations. The patient was counseled on concern for caution with operating a motor vehicle while using opiate medications. A physical exam was performed and the patient's functional status was evaluated. All patients with back pain were advised against the bed rest greater than [address] [address] PAIN MANAGEMENT CONSULTATION Name: COSMO HANNA JR Room #: REG [facility]#: [id number] Admission: 12/02/18 ������������������ Attend Phys: Juan Antonio Mercedes DO Discharge: ������������������ Date of : 53 Report #: [id number] days and were advised to return to normal activities. Pain score assessment was noted and the treatment plan was reviewed with the patient. All current medications, both prescribed and OTC were reviewed and reconciled on the electronic medical record. Tobacco screening was accomplished and smoking cessation was advised when indicated. BMI was noted and diet/exercise modification was recommended for all patients following outside normal parameters. I reviewed with the patient today their responsibilities to safeguard prescription medications, reviewed their responsibility to utilize medications only as prescribed by the physician. They are to seek and receive pain medications only from 1 physician group ( [facility]). They are to use 1 pharmacy and keep the clinic informed if they change pharmacies. Their responsibilities include making followup visits in a timely fashion and to avoid abrupt discontinuation of medication usage. Their responsibilities further include bringing their medications (bottles from the pharmacy with residual pills) to the visit for possible confirmation of pill counts and the patient understands it is their responsibility to submit to random drug screens to ensure both that the medications prescribed are present, and that no other controlled substances are present. All prescriptions provided today were generated electronically. 3. The patient was provided prescription of methadone 10 mg dose 1 tab p.o. b.i.d. I have given the patient #60 releasing today and 4 weeks from today, 2 months' worth of medication. 4. The patient was provided a refill prescription of his Robaxin 750 mg dose 1 tab p.o. t.i.d. I have given the patient #270, which is a 3-month prescription. 5. The patient was provided a prescription of Mobic 7.5 mg once a day. I have given the patient #90 tablets, which is 3-month prescription. 6. We will see the patient back in followup visit in 3 months for medication management, earlier if interventional treatments need to be discussed. ��������������������������������������������� <ELECTRONICALLY SIGNED> ���������������������������������������� By: Juan Antonio Mercedes DO ��������������������������������������������� 12/08/18 0752 [id number] Juan Antonio Mercedes DO /nt
== END ==
LOC: PAIN 07:03
DX: M47.816 Spondylosis without myelopathy or radiculopathy, lumbar region (principal); M19.011 Primary osteoarthritis, right shoulder; Z79.891 Long term (current) use of opiate analgesic; Z88.0 Allergy status to penicillin

== ENCOUNTER → 2019-02-02 | Outpatient (CLI) | payer OTHER ==
[~2019-02-02] VITALS: Ht 177.8 cm; Wt 107.0 kg
[~2019-02-02] MED LIST changes: +GRALISE600 MG PO; +IBUPROFEN 800800 M1 PO; +NEURONTIN600 MG PO
[2019-02-02 13:42] VITALS: BP 149/92
--- NOTE | 2019-02-02 13:56 | NUR ---
Pain Clinic Assessment: 1. History of Osteoarthritis: Not Applicable History of Rheumatoid Arthritis: Not Applicable 2. Height: 5 ft. 10 in. 177.8 cm. Weight: 235.8 lb. oz. 106.958 kg. Patient's BMI: 33.8 3. Vital Signs: BP: 149/92 Pulse: 64 Resp: 18 Temp: 02 Sat: 100 ECG Mon: 4. Pain Intensity: 10 5. Fall Risk: Dizziness: N Needs help standing or walking: N Fallen in the last 3 months: N Fall risk comments: 6. Patient on Blood Thinner: None 7. History of Hypertension: Y 8. Opioid Therapy greater than 6 weeks: Y Opiate Contract Signed: 10/31/17 9. Risk Assessment Tool Provided: LOW RISK 1 10. Functional Assessment Tool: 11. Recreational Drug Use: Never Drug Type: Tobacco Use: Former Smoker Tobacco Type: Amount or Packs/day: How Many Years: Alcohol Use: No Frequency: Quant:
--- NOTE | 2019-02-09 07:40 | HPC ---
[facility] [address] [place] [address] PAIN MANAGEMENT CONSULTATION Name: COSMO HANNA JR Room #: REG [facility] M..#: [id number] Admission: 02/02/19 ������������������ Attend Phys: Juan Antonio Mercedes DO Discharge: ������������������ Date of : 53 Report #: [id number] THIS REPORT FOR: //name// CC: Juan Antonio Julio DATE OF SERVICE: 02/02/2019 CHIEF COMPLAINT: Low back pain, right lower extremity pain with paresthesias, chronic right shoulder pain. HISTORY OF PRESENT ILLNESS: As you know, the patient is a 63-year-old male who returns today in followup visit reporting pain now 10/10. He states about two weeks ago, he began to experience low back pain, right lower extremity pain with paresthesias he describes as numbness, tingling, burning, electrical and shooting in sensation. He denies injury or trauma that may have led to symptom occurrence. As you are aware, the patient has been treated for an extended period of time with my partner, Dr. Gadiel Mercedes for chronic low back pain and right shoulder pain for which the patient is taking methadone twice a day. He returns today in followup visit with concerns of increasing right leg pain. States he is unable to sleep or go about activities of daily living due to this ongoing pain issue. Again, the patient denies any specific injury or trauma that may have led to symptom occurrence. ALLERGIES: PENICILLIN. CURRENT MEDICATIONS: Methadone 10 mg twice a day, methocarbamol 750 mg 3 times a day, pantoprazole 10 mg 2 tabs 3 times a day, meloxicam 7.5 mg once a day, lisinopril/hydrochlorothiazide 20/12.5 mg 1 tab p.o. b.i.d. SOCIAL HISTORY: The patient denies tobacco, alcohol, IV or illicit drug use. 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 He is accompanied by his present in room today. IMAGING: There is no new imaging available. PQRS: The patient has known bilateral osteoarthritis of the lumbar spine and bilateral shoulders, right greater than left, no rheumatoid arthritis. He is placing pain intensity today 10/10. He is not a fall risk, has not had a fall in the last 3 months. He is not on blood thinners, but is treated for hypertension. He is on chronic opioids and has a low risk for opioid addiction. He is placing pain impact score 51/70, indicating severe interference of [place] [address] PAIN MANAGEMENT CONSULTATION Name: COSMO HANNA JR Room #: REG [facility].#: [id number] Admission: 02/02/19 ������������������ Attend Phys: Juan Antonio Mercedes DO Discharge: ������������������ Date of : 53 Report #: [id number] PHYSICAL EXAMINATION: VITAL SIGNS: Blood pressure 149/92, pulse 64, respiratory rate 18 and unlabored. The patient is 100% on room air. Height 5 feet 10 inches tall, weight 235.8 pounds, BMI calculated 33.8. GENERAL: Well-developed, well-nourished, well-hydrated 63-year-old male appearing stated age, placing current pain score 10/10. HEENT: Normocephalic, atraumatic. Pupils equal, round, reactive to light. Speech fluent. The patient deemed a fair historian. EXTREMITIES: Show no clubbing, no cyanosis, and no edema. MUSCULOSKELETAL: Lower extremity strength is equal and symmetrical 5/5 when comparing right lower extremity to left. There is giveaway strength noted with hip flexion, knee extension on the right due to pain generation involving the low back, buttock and radiating all the way to the foot. Seated straight leg raising positive right, supine straight leg raising positive right. Lima's test is negative. Modified Gaenslen's is positive for axial low back pain. Ankle clonus negative. Babinski is negative. Gait is antalgic favoring right lower extremity over left. Lumbar provocation testing is met with increasing overall pain. ASSESSMENT: 1. Symptomatic lumbar radiculopathy. 2. Lumbosacral spondylosis with radiculopathy. 3. Chronic low back pain with acute exacerbation. 4. Chronic right shoulder pain. PLAN: 1. The patient has returned today in followup visit with onset of what appears to be lumbar radiculopathy involving the right lower extremity. The patient states he suffered no injury or trauma. He states the pain began about two weeks ago and has continually worsened. He almost sought evaluation at the Emergency Department, but made an appointment with us to discuss treatment options. He comes to us with no imaging studies and no workup in regards to this ongoing pain issue. He returns to discuss options for treatment. 2. Based on the physical exam, history he provides, the description the patient uses in regards to pain as well as location. It does appear he is suffering from lumbar radiculopathy. We discussed treatment options for lumbar radiculopathy today. We discussed the following. We discussed physical therapy, stretching exercises, core strengthening as a treatment option. We discussed medication management, adding a neuropathic pain medication to his preexisting opioid management for other pain issues. We discussed lumbar epidural injection under fluoroscopic guidance, spinal cord stimulator therapy 3. We discussed physical therapy, stretching exercise, core strengthening. We also discussed medication management, adding a neuropathic pain medication to his preexisting opioid medication therapy. We discussed lumbar epidural injection under fluoroscopic guidance, spinal cord stimulator and surgical options. After reviewing the risks and benefits of all the proposed treatment [facility] [address] [place] [address] PAIN MANAGEMENT CONSULTATION Name: CUTCOSMO IZAGUIRRE [id number] Admission: 02/02/19 ������������������ Attend Phys: Juan Antonio Mercedes DO Discharge: ������������������ Date of : 53 Report #: [id number] options, the patient chose to move forward with epidural injection under fluoroscopic guidance. epidural injection under fluoroscopic guidance, spinal cord stimulator and surgical options. After reviewing the risks and benefits of all the proposed treatment options, the patient chose to move forward with epidural injection under fluoroscopic guidance. The patient was advised that [employer] pay[employer] restrictions require that authorization be obtained before the patient could undergo a lumbar epidural injection. Authorization could take anywhere from 4-7 working days. We will begin this process immediately and contact the patient once it has been completed. 4. We recommend strongly that the patient undergo x-ray imaging of the lumbar spine. There has been no imaging in regards to this new onset of pain without provocation and we wish to further evaluate. The patient will undergo the x-ray imaging this afternoon, we will review its findings. The patient underwent the x-ray imaging. We have reviewed the findings. It does show severe disk desiccation at L2-L3, L3-L4 and L4-L5, no evidence of compression fracture or spondylolisthesis. After reviewing this imaging, it was determined, we would need to see better the disk space than the nerve roots and thus, we will need an MRI of lumbar spine for further evaluation. will review its findings. The patient underwent the x-ray imaging. We have reviewed the findings. It does show severe disk desiccation at L2-L3, L3-L4 and L4-L5, no evidence of compression fracture or spondylolisthesis. After reviewing this imaging, it was determined, we would need to see better the disk space than the nerve roots and thus, we will need an MRI of lumbar spine for further evaluation. 5. The patient will be sent for MRI of the lumbar spine without contrast. X-ray imaging did show a severe disk desiccation at L2-L3, L3-L4, and L4-L5, which is concerning for possible central canal stenosis as well as potentially even neural foraminal stenosis as it is impossible from x-ray imaging to determine any type of disk deviation or lateralization. We recommend the patient undergo MRI of the lumbar spine as quickly as possible to further evaluate to determine if surgical options may be necessary. any type of disk deviation or lateralization. We recommend the patient undergo MRI of the lumbar spine as quickly as possible to further evaluate to determine if surgical options may be necessary. 6. We will start the preauthorization process for the patient to undergo a lumbar epidural injection. This may take up to 4-7 working days. We will begin this process immediately and contact the patient once this has been completed. and contact the patient once this has been completed. 7. I will start the patient on Gralise 600 mg tablet and then escalate as directed by the titration pack. This will be added to his current existing medication management for chronic pain. This will add a neuropathic component for coverage of his current radiculopathy. 600 mg tablet and then escalate as directed by the titration pack. This will be added to his current existing medication management for chronic pain. This will add a neuropathic component for coverage of his current radiculopathy. [address] [address] PAIN MANAGEMENT CONSULTATION Name: COSMO HANNA JR Room #: REG [facility]#: [id number] Admission: 02/02/19 ������������������ Attend Phys: Juan Antonio Mercedes DO Discharge: ������������������ Date of : 53 Report #: [id number] 8. We will see the patient back in followup visit once we have obtained the MRI and the preapproval for a lumbar epidural injection. ��������������������������������������������� <ELECTRONICALLY SIGNED> ���������������������������������������� By: Juan Antonio Mercedes DO ��������������������������������������������� 02/09/19 0740 0801 1937 Juan Antonio Mercedes DO /nt
== END | disposition home or self-care (01) ==
LOC: PAIN 06:55
DX: M47.27 Other spondylosis with radiculopathy, lumbosacral region (principal); G89.29 Other chronic pain; I10 Essential (primary) hypertension; Z88.0 Allergy status to penicillin; Z79.899 Other long term (current) drug therapy; Z87.891 Personal history of nicotine dependence

== ENCOUNTER → 2019-02-10 | Outpatient (CLI) | payer OTHER ==
[~2019-02-10] VITALS: Ht 177.8 cm; Wt 106.8 kg
[2019-02-10 10:07] VITALS: BP 144/97
--- NOTE | 2019-02-10 10:28 | NUR ---
Pain Clinic Assessment: 1. History of Osteoarthritis: Not Applicable History of Rheumatoid Arthritis: Not Applicable 2. Height: 5 ft. 10 in. 177.8 cm. Weight: 235.4 lb. oz. 106.777 kg. Patient's BMI: 33.8 3. Vital Signs: BP: 144/97 Pulse: 66 Resp: 16 Temp: 02 Sat: 97 ECG Mon: 4. Pain Intensity: 3 5. Fall Risk: Dizziness: N Needs help standing or walking: N Fallen in the last 3 months: N Fall risk comments: 6. Patient on Blood Thinner: None 7. History of Hypertension: Y 8. Opioid Therapy greater than 6 weeks: Y Opiate Contract Signed: 10/31/17 9. Risk Assessment Tool Provided: LOW RISK 1 10. Functional Assessment Tool: 11. Recreational Drug Use: Never Drug Type: Tobacco Use: Former Smoker Tobacco Type: Amount or Packs/day: How Many Years: Alcohol Use: No Frequency: Quant:
--- NOTE | 2019-02-11 07:52 | HPC ---
[facility] [address] [place] [address] PAIN MANAGEMENT CONSULTATION Name: COSMO HANNA JR Room #: REG [facility]..#: [id number] Admission: 02/10/19 ������������������ Attend Phys: Elin Townsend Discharge: ������������������ Date of : 53 Report #: [id number] THIS REPORT FOR: //name// CC: Elin Frank DATE OF SERVICE: 02/10/2019 CHIEF COMPLAINT: Low back pain, right lower extremity pain and paresthesias and chronic right shoulder pain. HISTORY OF PRESENT ILLNESS: This is a 59-year-old gentleman who returns to the pain clinic today for followup for trial of his Gralise medications that were started a couple of weeks ago by Dr. Juan Antonio Mercedes. He tells me that his pain score is 3/10 today, mostly in his lower back, right leg that radiates to his ankle and his right shoulder. He feels that the pain is worse with activity and the medications and stretching are helpful. He tells me that the Gralise samples that he has been taking, he is up to 2 peach tablets, which is 1200 mg at dinner, finds very helpful and has decreased his pain significantly. He tells me he also takes his methadone, which he finds very helpful. He does not have any problems with constipation or daytime sleepiness or side effects from his medications. The patient was scheduled to have an MRI and possible lumbar epidural steroid injection. The patient feels that he does not think he needs this since his pain has decreased significantly since trialing this Gralise. He had not been on any neuropathic medicines in the past. He thinks he has tried Cymbalta possibly, but not amitriptyline or Elavil or Neurontin in the past. ALLERGIES: PENICILLIN. MEDICATIONS: Gralise 600 mg 2 at dinner, methocarbamol 750 mg every 8 hours p.r.n., meloxicam 7.5 mg daily, methadone 10 mg b.i.d., Remeron 30 mg at bedtime, Inderal 10 mg b.i.d., Protonix 40 mg daily, lisinopril/hydrochlorothiazide 20/25 b.i.d. PQRS: 1. 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 2. Height is 5 feet 10 inches, weight is 235. BMI is 33. 3. Vital Signs: Blood pressure 149/92, pulse is 64, respirations 18, oxygen sat is 100. Pain score is 10/10. 4. Fall risk: Denies dizziness. Does not need help with walking or standing. He has not fallen in the last 3 months. 5. The patient is not on any blood thinners. [place] [address] PAIN MANAGEMENT CONSULTATION Name: COSMO HANNA Room #: REG [facility].#: [id number] Admission: 02/10/19 ������������������ Attend Phys: Elin Townsend Discharge: ������������������ Date of : 53 Report #: [id number] hypertension. 6. Opioid therapy is greater than 6 weeks; therefore, an opioid signed contract is on the chart. His risk assessment tool is low. Functional assessment is 51/70. 7. Recreational drug use he denies. He is a former smoker and does not drink alcohol. We did check the prescription monitoring system. The patient is filling appropriately for his medications. There is a drug screen on the chart in the past year. He tells me he does safeguards his medications. IMAGING: There is no new imaging available. We do have an order for an MRI, though uncertain if it should be done at this time. PHYSICAL EXAMINATION: GENERAL: This is a well-developed, well-nourished, well-hydrated 63-year-old gentleman who appears his stated age, placing his pain score today at 3/10, a significant decrease. HEENT: Normocephalic, atraumatic. Pupils equal, round and reactive to light. Speech is fluent. EXTREMITIES: No clubbing, no cyanosis, no edema. MUSCULOSKELETAL: Lower extremity strength is equal and symmetrical at 5/5 comparing his left to his right. Seated straight leg raising is positive. Supine straight leg raising positive. Gait is antalgic favoring his right lower extremity over his left. The patient does complain of right shoulder pain with flexion and extension and rotation of his shoulder. ASSESSMENT: 1. Symptomatic lumbar radiculopathy. 2. Lumbosacral spondylosis with radiculopathy. 3. Chronic low back pain with acute exacerbation. 4. Chronic right shoulder pain. 5. Management of high risk medications under terms of written opioid agreement. PLAN: 1. We discussed treatment options with the patient today. The patient tells me that the Gralise has been very beneficial. He tells me that he is having significant decrease in his pain. At previous appointment his pain score was 10, today it is 3/10 with taking two Gralise tablets at dinner. He would like to continue this medication. He feels like he is having no side effects, no sleepiness or overmedicated feeling. I explained to the patient that we would try a cheaper generic medication for him and see if this medicine is as beneficial. If not, then we would try to get an authorization for the Gralise tablets. The patient is agreeable with this plan of care. He tells me his did look up the cost of Gralise which is quite expensive and he is worried about covering the medication on their fixed income, but knew that it was very [facility] [address] [place] [address] PAIN MANAGEMENT CONSULTATION Name: CUTCOSMO IZAGUIRRE JR Room #: REG [facility]..#: [id number] Admission: 02/10/19 ������������������ Attend Phys: Elin Townsend Discharge: ������������������ Date of : 53 Report #: [id number] beneficial in decreasing his pain. I did speak with Dr. Juan Antonio Mercedes who saw the patient as well and we decided to prescribe Neurontin 600 mg q.i.d., #120. This is the equivalent dosing to his current Gralise dose. 2. Script was given for methadone 10 mg b.i.d. for today and 4-week release. The patient takes this with limited side effects and denies any problems with constipation. 3. We did discuss at great lengths regarding an MRI if it was needed or not. I encouraged the patient that I do not think that it is needed at this time of his lumbar spine. He tells me he is happy about that. He is worried about needing an MRI for his shoulder, which he is having ongoing issues and feels that is that is the worst pain right now since he has started this new medication and feels like he needs to get that taken care of and was worried about the cost associated with having two tests done. I explained to the patient to hold onto the script for his lumbar spine MRI in case it is needed or we can reorder it in the future, but for now to place that on hold. 4. The patient will follow up in 2-month time period for medication refills. The patient was seen with Dr. Juan Antonio Mercedes who saw the patient and collaborated care today. ��������������������������������������������� <ELECTRONICALLY SIGNED> ���������������������������������������� By: Elin Townsend ��������������������������������������������� 02/11/19 0752 [id number] Elin Townsend /jamil
== END ==
LOC: PAIN 06:56
DX: M47.27 Other spondylosis with radiculopathy, lumbosacral region (principal); G89.29 Other chronic pain; M25.511 Pain in right shoulder; Z79.891 Long term (current) use of opiate analgesic; Z79.899 Other long term (current) drug therapy

== ENCOUNTER → 2019-04-09 | Outpatient (CLI) | payer OTHER ==
[~2019-04-09] VITALS: Ht 170.2 cm; Wt 109.1 kg
[~2019-04-09] MED LIST changes: +DICLOFENAC SOD50 M1 PO; +ROBAXIN 750 MG750 MG PO
--- NOTE | ~2019-04-09 | HPC ---
[facility] [place] [place] [address] PAIN MANAGEMENT CONSULTATION Name: COSMO HANNA JR Room #: REG [facility].#: [id number] Admission: 04/09/19 ������������������ Attend Phys: Wilfrid Butterfield MD Discharge: ������������������ Date of : 53 Report #: [id number] THIS REPORT FOR: //name// CC: MESERET Reddy. Zac Butterfield DATE OF SERVICE: 04/09/2019 The patient complains of pain in lower back with pain that radiates down to his right lower extremity. He has had a history of paresthesias. Also, chronic right shoulder pain. He has returned to the Pain Clinic for medical management. HISTORY: The patient is a 59-year-old gentleman who has been followed in the pain clinic because of chronic pain. His pain has been problematic in his low back and radiates down into his right leg. He has pain in his ankle on the right side. Also, has a history of right shoulder pain. Notes that pain is worse with activities of daily living. He finds his medications were helpful in conjunction with stretching activity. He has been using Gralise. He finds that this has decreased his pain significantly. He also has been using methadone. Finds these medications have been helpful as well. He has had no problems with his bowel or bladder function at this point. He is able to think clearly. Overall, his medications he feels are beneficial. He has undergone an injection in the right shoulder. ALLERGIES: PENICILLIN. CURRENT MEDICATIONS: Gralise 600 mg 2 tablets at dinner, methocarbamol 750 mg q. 8 hours p.r.n., meloxicam 7.5 mg daily, methadone 10 mg b.i.d., Remeron 30 mg at bedtime, Inderal 10 mg b.i.d., Protonix 40 mg, lisinopril/hydrochlorothiazide 20/25 mg b.i.d. PAIN CLINIC ASSESSMENT/PQRS: 1. The patient has some arthritic changes and complaints in his shoulder. He is not being treated for rheumatoid arthritis. 2. Height 5 feet 7 inches, weight 240 pounds, BMI is 37.7. 3. VITAL SIGNS: Blood pressure 142/62, pulse 57, respiratory rate 16, room air saturation 96%. 4. Pain intensity 12/06. 5. Fall history: The patient has not fallen in the last 3 months. 6. Blood thinner. The patient is not on a blood thinning medication. 7. Hypertension. The patient has been treated for hypertension. 8. Opioids. The patient receives medication from one source, the pain clinic. 9. Risk assessment tool one for opioid use. 10. Functional assessment tool 5170. 11. Recreational drug use. The patient denies. [address] [address] PAIN MANAGEMENT CONSULTATION Name: COSMO HANNA Room #: REG [facility].#: [id number] Admission: 04/09/19 ������������������ Attend Phys: Wilfrid Butterfield MD Discharge: ������������������ Date of : 53 Report #: [id number] 12. Tobacco: The patient is a former smoker. 13. Alcohol: The patient denies frequent use of alcoholic beverages. PHYSICAL EXAMINATION: GENERAL: The patient is a well-developed, well-nourished white male. Appears his stated age. He is alert and oriented x 3. His affect is appropriate. Speech is fluent. HEENT: Normocephalic, atraumatic. Extraocular eye muscles intact. Sclerae nonicteric. Mucous membranes are moist. NECK: Without adenopathy or JVD. The patient has some pain and discomfort involving the shoulder, this is on the right side. HEART: Regular rate. ABDOMEN: Nontender. Bowel sounds present. EXTREMITIES: Upper extremity muscle strength is judged to be 5-/5 for the major muscle groups on the left side. Muscle strength on the right is 5-/5 for the major muscle groups. Lower extremity, the patient has pain and discomfort that radiates down the right leg and to the level of his ankle. Has a slight antalgic gait. Lower extremity muscle strength generally 5-/5 for the major muscle groups in the lower extremity. ASSESSMENT: 1. Symptomatic lumbar radiculopathy. 2. Lumbosacral spondylosis with radiculopathy. 3. Chronic low back pain with acute exacerbation. 4. Chronic right shoulder pain. 5. Management of pain with high risk medications with opioids. RECOMMENDATIONS: We discussed treatment options with the patient. At this juncture, we will continue with his current medical regimen. He feels that his medications are helpful. We again have discussed the use of opioid medications with the patient. Medications can become less effective over time secondary to intolerance. We have discussed with the patient the fact that 70,000 patient's last year as a result of overdosing. The patient is aware of the media information regarding opioid use. He feels that the medication is helpful. Keeps his medications in a guarded area. He feels that he is able to engage in activities and would not be able to without use of his medications. He will continue with gabapentin. He has been given a script for 600 mg 2 tablets at bedtime, Robaxin 750 mg t.i.d., diclofenac 50 mg b.i.d., methadone 10 mg daily. The patient will also monitor his GI tract for irritation from nonsteroidal anti-inflammatory [facility] [address] [place] [address] PAIN MANAGEMENT CONSULTATION Name: CUTCOSMO IZAGUIRRE Room #: REG [facility] Ross#: [id number] Admission: 04/09/19 ������������������ Attend Phys: Wilfrid Butterfield MD Discharge: ������������������ Date of : 53 Report #: [id number] medications. He will call us if he has any concerns. We would like to thank you for letting us participate in his care. We hope he continues to improve. ��������������������������������������������� ���������������������������������������� By: ��������������������������������������������� [id number] Wilfrid Butterfield MD /nt
[2019-04-09 12:56] VITALS: BP 142/62
--- NOTE | 2019-04-09 13:01 | NUR ---
Pain Clinic Assessment: 1. History of Osteoarthritis: Not Applicable History of Rheumatoid Arthritis: Not Applicable 2. Height: 5 ft. 7 in. 170.2 cm. Weight: 240.6 lb. oz. 109.136 kg. Patient's BMI: 37.7 3. Vital Signs: BP: 142/62 Pulse: 57 Resp: 16 Temp: 02 Sat: 96 ECG Mon: 4. Pain Intensity: 3 5. Fall Risk: Dizziness: N Needs help standing or walking: N Fallen in the last 3 months: N Fall risk comments: 6. Patient on Blood Thinner: None 7. History of Hypertension: Y 8. Opioid Therapy greater than 6 weeks: Y Opiate Contract Signed: 10/31/17 9. Risk Assessment Tool Provided: LOW RISK 1 10. Functional Assessment Tool: 11. Recreational Drug Use: Never Drug Type: Tobacco Use: Former Smoker Tobacco Type: Amount or Packs/day: How Many Years: Alcohol Use: No Frequency: Quant:
== END ==
LOC: PAIN 06:46
DX: M47.27 Other spondylosis with radiculopathy, lumbosacral region (principal); I10 Essential (primary) hypertension; M25.511 Pain in right shoulder; Z79.899 Other long term (current) drug therapy; Z79.891 Long term (current) use of opiate analgesic; Z88.0 Allergy status to penicillin; Z87.891 Personal history of nicotine dependence

== ENCOUNTER → 2019-06-02 | Outpatient (CLI) | payer OTHER ==
[~2019-06-02] VITALS: Ht 177.8 cm; Wt 107.4 kg
[2019-06-02 13:11] VITALS: BP 144/90
--- NOTE | 2019-06-02 13:35 | NUR ---
Pain Clinic Assessment: 1. History of Osteoarthritis: Not Applicable History of Rheumatoid Arthritis: Not Applicable 2. Height: 5 ft. 10 in. 177.8 cm. Weight: 236.8 lb. oz. 107.412 kg. Patient's BMI: 34.0 3. Vital Signs: BP: 144/90 Pulse: 56 Resp: 16 Temp: 02 Sat: 98 ECG Mon: 4. Pain Intensity: 3 5. Fall Risk: Dizziness: N Needs help standing or walking: N Fallen in the last 3 months: N Fall risk comments: 6. Patient on Blood Thinner: None 7. History of Hypertension: Y 8. Opioid Therapy greater than 6 weeks: Y Opiate Contract Signed: 10/31/17 9. Risk Assessment Tool Provided: LOW RISK 1 10. Functional Assessment Tool: 11. Recreational Drug Use: Never Drug Type: Tobacco Use: Former Smoker Tobacco Type: Amount or Packs/day: How Many Years: Alcohol Use: No Frequency: Quant:
--- NOTE | 2019-06-03 08:41 | HPC ---
[facility] [address] [place] [address] PAIN MANAGEMENT CONSULTATION Name: COSMO HANNA JR Room #: REG [facility].#: [id number] Admission: 06/02/19 Attend Phys: Elin Townsend Discharge: Date of : 53 Report #: [id number] THIS REPORT FOR: //name// CC: Elin Frank DATE OF SERVICE: 06/02/2019 CHIEF COMPLAINT: Low back pain with radiculopathy and paresthesias. HISTORY OF PRESENT ILLNESS: This is a 63-year-old gentleman who returns to the pain clinic today for a refill of his medications that he uses to help treat his ongoing chronic pain that he has in his low back that radiates down his right lower extremity. He also has a history of paresthesias in his hands and legs. He does complain of neck pain as well today. The patient reports a pain score of 3/10 today, which he informs me is a very low number for him. It is a dull aching pain. He thinks this is related to the weather being stable right now that his pain is well controlled. His pain is increased with activity, but medication and stretching also help relieve his pain as well as the weather. He denies any problems with constipation or daytime sleepiness. ALLERGIES: PENICILLIN. CURRENT LIST OF HOME MEDICINES: Methadone 10 mg every 12 hours., diclofenac 50 mg b.i.d., Robaxin 750 mg t.i.d. p.r.n., gabapentin 600 mg 4 times a day, Remeron 30 mg at bedtime, propranolol 20 mg b.i.d., Protonix 40 mg daily and lisinopril hydrochlorothiazide 20/25 daily. PQRS: 1. He has arthritic changes in his spine, neck and shoulders. He is not being treated for rheumatoid arthritis. 2. Height is 5 feet 10 inches, weight is 236, BMI is 34. 3. Vital signs 144/90, pulse is 56, respirations 16, oxygen sat is 98. 4. Pain score is 3/10 today. 5. Denies dizziness, does not need help walking or standing, has not fallen in the last 3 months. He does not take any blood thinners, but does take medicine for hypertension. 6. Opiate therapy is greater than 6 weeks; therefore, an opiate signed contract is on the chart. Risk assessment tool is low. Functional assessment is 51/70. 7. Recreational drug use, he denies. He is a former smoker and does not drink alcohol. According to the prescription monitoring system, the patient is filling appropriately for his medications and is due in a timely fashion today. There is a recent drug screen on the chart that we will repeat again at his next [facility] [address] [place] [address] PAIN MANAGEMENT CONSULTATION Name: COSMO HANNA Room #: REG [facility] Ross#: [id number] Admission: 06/02/19 Attend Phys: Elin Townsend Discharge: Date of : 53 Report #: [id number] visit. PHYSICAL EXAMINATION: GENERAL: This is a well-developed, well-nourished white male, who appears his stated age. He is alert and orientated. His affect is appropriate. HEENT: Normocephalic, atraumatic. Extraocular eye muscles are intact. Mucous membranes are moist. NECK: Without adenopathy. He does complain of some pain and discomfort at the base of his skull that is tender to the touch. MUSCULOSKELETAL: Upper extremity strength judged to be 5/5 in all major muscle groups. Lower extremity, he has pain and discomfort that radiates down his right leg to his ankle on the outer aspect of his leg. He ambulates with a slightly antalgic gait. Lower extremity strength judged to be 5/5 in all major muscle groups. Numbness and tingling noted in his hands and feet bilaterally. ASSESSMENT: 1. Symptomatic lumbar radiculopathy. 2. Lumbosacral spondylosis with radiculopathy. 3. Chronic low back pain. 4. Chronic right shoulder pain. 5. Management of pain and high-risk medications with opioid medication management. We reviewed the fact that opiate medications are being used to provide analgesia adequate to support activities of daily living, not attempting to achieve a specific pain score on the 0-10 Visual Analog Scale. The current opiate medications are providing sufficient analgesia to allow the patient to participate in activities of daily living. The patient is not exhibiting any aberrant behavior suggestive of drug diversion. The patient is not having any adverse reactions to medications. The patient is not suffering from daytime somnolence or mental acuity changes. The patient is managing opiate-induced constipation with appropriate [id number] agents and dietary considerations. The patient was counseled on concern for caution with operating a motor vehicle while using opiate medications. A physical exam was performed and the patient's functional status was evaluated. All patients with back pain were advised against the bed rest greater than 4 days and were advised to return to normal activities. Pain score assessment was noted and the treatment plan was reviewed with the patient. All current medications, both prescribed and OTC were reviewed and reconciled on the electronic medical record. Tobacco screening was accomplished and smoking cessation was advised when indicated. BMI was noted and diet/exercise modification was recommended for all patients following outside normal parameters. I reviewed with the patient today their responsibilities to safeguard [facility] [address] [place] [address] PAIN MANAGEMENT CONSULTATION Name: COSMO HANNA JR [facility] [id number] Admission: 06/02/19 Attend Phys: Elin Townsend Discharge: Date of : 53 Report #: [id number] prescription medications, reviewed their responsibility to utilize medications only as prescribed by the physician. They are to seek and receive pain medications only from 1 physician group ( [facility]). They are to use 1 pharmacy and keep the clinic informed if they change pharmacies. Their responsibilities include making followup visits in a timely fashion and to avoid abrupt discontinuation of medication usage. Their responsibilities further include bringing their medications (bottles from the pharmacy with residual pills) to the visit for possible confirmation of pill counts and the patient understands it is their responsibility to submit to random drug screens to ensure both that the medications prescribed are present, and that no other controlled substances are present. All prescriptions provided today were generated electronically. PLAN: 1. We discussed treatment options with the patient today. The patient finds his medications very beneficial in controlling his pain of his methadone 10 mg b.i.d. According to the CDC guidelines, this is 60 morphine milliequivalent, well below the CDC guidelines. We will see him on an every 2-month basis. Scripts given today for #60 for today and release in 4 weeks. 2. Medications also given of diclofenac sodium 50 mg b.i.d., #60, with 1 additional refill. The patient reminded not to take any other nonsteroidal anti-inflammatories while taking this medication and gabapentin 600 mg, #120, with 1 additional refill. 3. The patient does not need Robaxin refill today. If he does need this prior to his next visit, we will call in 1-month refill if needed. 4. The patient is seen in collaboration with Dr. Narinder Butterfield who did see the patient as well today. <ELECTRONICALLY SIGNED> By: Elin Townsend 06/03/19 0841 [id number] Elin Townsend /nt
== END ==
LOC: PAIN 06:55
DX: M47.27 Other spondylosis with radiculopathy, lumbosacral region (principal); M25.511 Pain in right shoulder; Z88.0 Allergy status to penicillin; Z79.899 Other long term (current) drug therapy; Z79.891 Long term (current) use of opiate analgesic

== ENCOUNTER → 2019-08-18 | Outpatient (CLI) | payer OTHER ==
[~2019-08-18] VITALS: Ht 177.8 cm; Wt 105.6 kg
[~2019-08-18] MED LIST changes: +GABAPENTIN600 M1 PO
[2019-08-18 11:12] VITALS: BP 131/74
--- NOTE | 2019-08-18 11:20 | NUR ---
Pain Clinic Assessment: 1. History of Osteoarthritis: BACK History of Rheumatoid Arthritis: Not Applicable 2. Height: 5 ft. 10 in. 177.8 cm. Weight: 232.8 lb. oz. 105.598 kg. Patient's BMI: 33.4 3. Vital Signs: BP: 131/74 Pulse: 56 Resp: 16 Temp: 02 Sat: 97 ECG Mon: 4. Pain Intensity: 3-4 5. Fall Risk: Dizziness: N Needs help standing or walking: N Fallen in the last 3 months: N Fall risk comments: 6. Patient on Blood Thinner: None 7. History of Hypertension: Y 8. Opioid Therapy greater than 6 weeks: Y Opiate Contract Signed: 10/31/17 9. Risk Assessment Tool Provided: LOW RISK 10/01 10. Functional Assessment Tool: 11. Recreational Drug Use: Never Drug Type: Tobacco Use: Former Smoker Tobacco Type: Amount or Packs/day: How Many Years: Alcohol Use: No Frequency: Quant:
--- NOTE | 2019-08-19 10:01 | HPC ---
[facility] [address] [place] [address] PAIN MANAGEMENT CONSULTATION Name: COSMO HANNA JR Room #: REG [facility].#: [id number] Admission: 08/18/19 Attend Phys: Elin Townsend Discharge: Date of : 53 Report #: [id number] THIS REPORT FOR: //name// CC: Elin Frank DATE OF SERVICE: 08/18/2019 CHIEF COMPLAINT: Low back pain with radiculopathy and paresthesias. HISTORY OF PRESENT ILLNESS: This is a 64-year-old gentleman who returns to the pain clinic today for refill of his medications. He reports his pain score is 3-4 in his lower lumbar region as well as his right leg. He reports that it is an aching feeling that is worse with any activity though his medication as well as stretching is beneficial. He does report that some days he is not very ambitious and does sit in the chair all day, but he tries to be as active as possible and he knows that he feels better when he is not sitting in the chair every day. He denies any problems with constipation or daytime sleepiness from his medications. ALLERGIES: PENICILLIN. CURRENT LIST OF MEDICATIONS: Methadone 10 mg b.i.d., gabapentin 600 mg q.i.d., diclofenac sodium 50 mg b.i.d., methocarbamol 750 mg t.i.d., Remeron 30 mg at bedtime, propranolol 20 mg b.i.d., Protonix 40 mg daily and lisinopril/hydrochlorothiazide 20/25 daily. PQRS: 1. He has a history of arthritic changes in his spine, neck, and shoulders. Denies any rheumatoid arthritis. 2. Height is 5 feet 10 inches, weight is 232, BMI is 33. 3. Vital signs 131/74, pulse is 56, respirations 16, oxygen sat is 97. 4. Pain score is 3-4. 5. Denies dizziness, does not need help walking or standing, has not fallen in the last 3 months. 6. The patient is not on any blood thinners, but does take medicine for hypertension. 7. Opioid therapy is greater than 6 weeks; therefore, an opioid signed contract is on the chart. His risk assessment tool is low. Functional assessment is 43/70. 8. Recreational drug use, he denies. He is a former smoker and does not drink alcohol. According to the prescription monitoring system, the patient is filling appropriately for his medications in a timely fashion [place] [address] PAIN MANAGEMENT CONSULTATION Name: COSMO HANNA Room #: REG [facility]#: [id number] Admission: 08/18/19 Attend Phys: Elin Townsend Discharge: Date of : 53 Report #: [id number] be filled today. We will check a random drug screen on this patient today. He reports he does safeguard his medications. PHYSICAL EXAMINATION: GENERAL: This is a well-developed, well-nourished 64-year-old gentleman who appears his stated age. He is alert and orientated. HEENT: Normocephalic, atraumatic. Extraocular eye muscles are intact. Mucous membranes are moist. NECK: Without adenopathy or JVD. MUSCULOSKELETAL: He has pain in his lumbosacral region that does radiate down his right leg to his calf on the outer aspect. He ambulates with an antalgic gait. His lower extremity strength judged to be 5/5 in all major muscle groups in the lower extremities with good sensation. ASSESSMENT: 1. Symptomatic lumbar radiculopathy. 2. Lumbosacral spondylosis with radiculopathy. 3. Chronic low back pain. 4. Chronic right shoulder pain. 5. Management of high risk medications under terms of written opioid agreement. We reviewed the fact that opiate medications are being used to provide analgesia adequate to support activities of daily living, not attempting to achieve a specific pain score on the 0-10 Visual Analog Scale. The current opiate medications are providing sufficient analgesia to allow the patient to participate in activities of daily living. The patient is not exhibiting any aberrant behavior suggestive of drug diversion. The patient is not having any adverse reactions to medications. The patient is not suffering from daytime somnolence or mental acuity changes. The patient is managing opiate-induced constipation with appropriate gkku-ums-bfaojis agents and dietary considerations. The patient was counseled on concern for caution with operating a motor vehicle while using opiate medications. A physical exam was performed and the patient's functional status was evaluated. All patients with back pain were advised against the bed rest greater than 4 days and were advised to return to normal activities. Pain score assessment was noted and the treatment plan was reviewed with the patient. All current medications, both prescribed and OTC were reviewed and reconciled on the electronic medical record. Tobacco screening was accomplished and smoking cessation was advised when indicated. BMI was noted and diet/exercise modification was recommended for all patients following outside normal parameters. I reviewed with the patient today their responsibilities to safeguard prescription medications, reviewed their responsibility to utilize medications only as prescribed by the physician. They are to seek and receive pain [address] [address] PAIN MANAGEMENT CONSULTATION Name: COSMO HANNA JR Room #: REG [facility]#: [id number] Admission: 08/18/19 Attend Phys: Elin ROSA Townsend Discharge: Date of : 53 Report #: [id number] medications only from 1 physician group ( [facility]). They are to use 1 pharmacy and keep the clinic informed if they change pharmacies. Their responsibilities include making followup visits in a timely fashion and to avoid abrupt discontinuation of medication usage. Their responsibilities further include bringing their medications (bottles from the pharmacy with residual pills) to the visit for possible confirmation of pill counts and the patient understands it is their responsibility to submit to random drug screens to ensure both that the medications prescribed are present, and that no other controlled substances are present. All prescriptions provided today were generated electronically. PLAN: 1. We discussed treatment options with the patient today. The patient requested increase in his methocarbamol. I explained to him that 750 mg is the highest that we are willing to go. I would offer him an alternative muscle relaxant to see if that is beneficial, stating that sometimes it is good to rotate these. I offered baclofen or tizanidine, but at this time, the patient decided to continue on his methocarbamol. 2. The patient does find the methadone very beneficial. I encouraged him to be as active as possible, not to sit in the chair, which he does report doing on some days when his pain is increased. Today, we will refill his methadone 10 mg, #60 for today and 4-week release. This does place him at 60 morphine mEq according to the CDC guidelines. 3. We will write 3 months of medications for his gabapentin 600 mg q.i.d. #360 with 1 refill, methocarbamol 750 mg #270 with one refill, diclofenac sodium 50 mg b.i.d., #180 with 1 refill. The patient will mail these to [facility]. 4. We obtained a urine drug screen randomly on this patient today. 5. The patient is seen in collaboration with Dr. Narinder Butterfield who is covering for Dr. Juan Antonio Mercedes today. The patient will call for an appointment in 2 months. <ELECTRONICALLY SIGNED> By: Elin Townsend 08/19/19 [id number] Elin Townsend /nt
== END ==
LOC: PAIN 07:05
DX: M47.27 Other spondylosis with radiculopathy, lumbosacral region (principal); M25.511 Pain in right shoulder; G89.29 Other chronic pain; Z79.891 Long term (current) use of opiate analgesic

== ENCOUNTER → 2019-10-13 | Outpatient (CLI) | payer OTHER ==
[~2019-10-13] VITALS: Ht 177.8 cm; Wt 105.1 kg
[2019-10-13 13:30] VITALS: BP 120/73
--- NOTE | 2019-10-13 13:45 | NUR ---
Pain Clinic Assessment: 1. History of Osteoarthritis: BACK History of Rheumatoid Arthritis: Not Applicable 2. Height: 5 ft. 10 in. 177.8 cm. Weight: 231.8 lb. oz. 105.144 kg. Patient's BMI: 33.3 3. Vital Signs: BP: 120/73 Pulse: 60 Resp: 20 Temp: 02 Sat: 98 ECG Mon: 4. Pain Intensity: 4 5. Fall Risk: Dizziness: N Needs help standing or walking: N Fallen in the last 3 months: N Fall risk comments: 6. Patient on Blood Thinner: None 7. History of Hypertension: Y 8. Opioid Therapy greater than 6 weeks: Y Opiate Contract Signed: 10/31/17 9. Risk Assessment Tool Provided: LOW RISK 10/01 10. Functional Assessment Tool: 11. Recreational Drug Use: Never Drug Type: Tobacco Use: Former Smoker Tobacco Type: Amount or Packs/day: How Many Years: Alcohol Use: No Frequency: Quant:
--- NOTE | 2019-10-20 16:47 | HPC ---
[facility] [address] [place] [address] PAIN MANAGEMENT CONSULTATION Name: COSMO HANNA JR [id number] Admission: 10/13/19 Attend Phys: Wilfrid Butterfield MD Discharge: Date of : 53 Report #: [id number] THIS REPORT FOR: //name// CC: MESERET Olvera. Zac Butterfield DATE OF SERVICE: 10/13/2019 CHIEF COMPLAINT: Low back and right leg pain. HISTORY: The patient is a 64-year-old gentleman who has been followed in the pain clinic. As you recall, he has pain in his lower extremities. Has a history of paresthesias down in his leg. Also, has some right shoulder pain. He notes that activities of daily living can increase his pain. Rates his pain today as a 4/10. Describes it as sharp, aching discomfort. Notes that the pain increases as the day progresses. Pain improves somewhat with stretching. He feels that his medications at this point continue to be beneficial. He would like to continue with the medications. He has had some problems with a low vitamin K. States that he also has low platelets. Indicates that his viral count has been low. He has been treated with Harvoni. He has returned today with the hopes of renewing his medications. ALLERGIES: PENICILLIN. CURRENT MEDICATIONS: Gralise 600 mg 2 tablets at dinner, methocarbamol 750 mg q.8 hours p.r.n., meloxicam 7.5 mg daily, methadone 10 mg b.i.d., Remeron 30 mg at bedtime, Inderal 10 mg b.i.d., Protonix 40 mg, lisinopril/hydrochlorothiazide 20/25 b.i.d. PAIN CLINIC ASSESSMENT AND PQRS: 1. The patient has some arthritic changes and complaints of this in his shoulder. He is not being treated for rheumatoid arthritis. 2. Height 5 feet 10 inches, weight 231 pounds, BMI is 33.3. 3. Vital signs: Blood pressure 120/73, pulse 60, respiratory rate 16, room air saturation 98%. 4. Pain intensity, 01/06. 5. Fall history. The patient has not fallen since we saw him last. 6. Blood thinner. The patient is not on a blood thinning medication. 7. Hypertension. The patient is being treated for hypertension. 8. Opioids greater than 6 weeks. The patient received medication from one source, pain clinic. 9. Risk assessment tool, 10/01, low. 10. Functional assessment tool, . 11. Recreational drug use, the patient denies. 12. Tobacco, the patient [place] [address] PAIN MANAGEMENT CONSULTATION Name: COSMO HANNA Room #: REG [facility] Rose.#: [id number] Admission: 10/13/19 Attend Phys: Wilfrid Butterfield MD Discharge: Date of : 53 Report #: [id number] 13. Alcohol, the patient denies use of alcoholic beverages. PHYSICAL EXAMINATION: GENERAL: The patient is a well-developed, well-nourished, white male. Appears his stated age. He is alert and oriented x 3. His affect is appropriate. Speech is fluent. HEENT: Normocephalic, atraumatic. Extraocular eye muscles intact. Sclerae nonicteric. Mucous membranes are moist. NECK: Without adenopathy or JVD. The patient has some pain and discomfort involving his shoulder that is on the right side. HEART: Regular rate. ABDOMEN: Nontender. Bowel sounds present. EXTREMITIES: Upper extremity muscle strength judged to be 5-/5 for the major muscle groups in the left side. Right side muscle strength 5/5 for the major muscle groups in the upper extremity. Lower extremity, the patient has some pain and discomfort that radiates down into his right leg and has had to the level of his ankle. Has a slight antalgic gait. Lower extremity muscle strength judged to be 5/5 for the major muscle groups in the lower extremity. IMPRESSION: 1. Symptomatic lumbar radiculopathy history. 2. Lumbosacral spondylosis with radiculopathy. 3. Chronic low back pain with acute exacerbation. 4. Chronic right shoulder pain. 5. Management of pain with complex medical management using opioids. RECOMMENDATIONS: We discussed treatment options with the patient. At this juncture, we will continue with his medications. He feels that these medications are helpful. He continues to be followed up by his physician regarding his viral count and hepatitis history. He is not having any problems with his medications. He is aware that the opioid medications can become less effective as time goes on. He has taken the medication as prescribed. He has not shown any signs of addictive behavior. We will continue with his current medical regimen. A script for his medications have been renewed. He will continue with the methadone 10 mg 1 p.o. b.i.d. We will also continue with diclofenac 50 mg p.o. b.i.d. The patient will continue with gabapentin 600 mg 1 p.o. q.i.d. He will call us if he has any concerns. We will continue with Robaxin 750 mg 1 p.o. t.i.d. We would like to thank you for letting us participate in his care. <ELECTRONICALLY SIGNED> By: Wilfrid Butterfield MD 10/20/19 [id number] Wilfrid Butterfield MD /[facility]
== END ==
LOC: PAIN 12:55
DX: M47.27 Other spondylosis with radiculopathy, lumbosacral region (principal); M54.5 Low back pain; M25.511 Pain in right shoulder; Z79.891 Long term (current) use of opiate analgesic

== ENCOUNTER → 2019-12-22 | Outpatient (CLI) | payer OTHER ==
[~2019-12-22] VITALS: Ht 177.8 cm; Wt 105.7 kg
[2019-12-22 13:37] VITALS: BP 145/96
--- NOTE | 2019-12-22 13:48 | NUR ---
Pain Clinic Assessment: 1. History of Osteoarthritis: BACK History of Rheumatoid Arthritis: DENIES 2. Height: 5 ft. 10 in. 177.8 cm. Weight: 233.0 lb. oz. 105.688 kg. Patient's BMI: 33.4 3. Vital Signs: BP: 145/96 Pulse: 55 Resp: 14 Temp: 02 Sat: 97 ECG Mon: 4. Pain Intensity: 3 5. Fall Risk: Dizziness: N Needs help standing or walking: N Fallen in the last 3 months: N Fall risk comments: 6. Patient on Blood Thinner: None 7. History of Hypertension: Y 8. Opioid Therapy greater than 6 weeks: Y Opiate Contract Signed: 10/31/17 9. Risk Assessment Tool Provided: LOW RISK 10/01 10. Functional Assessment Tool: 11. Recreational Drug Use: Never Drug Type: Tobacco Use: Former Smoker Tobacco Type: Amount or Packs/day: How Many Years: Alcohol Use: No Frequency: Quant:
--- NOTE | 2019-12-23 13:31 | HPC ---
[facility] [address] [place] [address] PAIN MANAGEMENT CONSULTATION Name: COSMO HANNA JR Room #: REG [facility].#: [id number] Admission: 12/22/19 Attend Phys: Elin Townsend Discharge: Date of : 53 Report #: [id number] THIS REPORT FOR: cc: MESERET RYDER Leila. Elin Méndez ~ DATE OF SERVICE: 12/22/2019 CHIEF COMPLAINT: Low back pain and right lower extremity pain. HISTORY OF PRESENT ILLNESS: This is a 64-year-old gentleman who returns to the pain clinic today for refill of his medications that he uses to help treat his ongoing low back pain and right leg pain. He reports a pain score today of 3/10. He feels that his medication is very beneficial in controlling his pain. He describes it as an aching and occasional sharp pain that is worse with activity or as the day progresses he feels as long as he stretches and takes his medication, he is able to do his activities that he would like around his house. He reports occasionally he is able to take a half a tablet less per day if he is having a good day. He denies any problems with constipation or daytime sleepiness as a result of his medications. ALLERGIES: PENICILLIN. CURRENT LIST OF MEDICATIONS: Methocarbamol 750 mg, methadone 10 mg b.i.d., gabapentin 600 mg, diclofenac, mirtazapine, Inderal, Protonix and lisinopril/hydrochlorothiazide. PQRS: 1. He has arthritic changes in his lumbar spine and denies any rheumatoid arthritis. 2. Height is 5 feet 10 inches, weight is 233, BMI is 33. 3. Vital signs, blood pressure 145/96, pulse is 55, respirations 14, and oxygen sat is 97. 4. Pain score is 3/10. 5. Denies dizziness, does not need help walking or standing, has not fallen in the last 3 months. 6. The patient is not on any blood thinner, but does take medicine for hypertension. 7. Opioid therapy is greater than 6 weeks; therefore, an opioid signed contract is on the chart. Risk assessment tool is low. Functional assessment is 43/70. 8. Recreational drug use, he denies. He is a former smoker and does not drink alcohol. According to the prescription monitoring system, the patient is filling appropriately in a timely fashion. He has actually passed due to fill his [facility] [address] [place] [address] PAIN MANAGEMENT CONSULTATION Name: COSMO HANNA JR Room #: REG [facility].#: [id number] Admission: 12/22/19 Attend Phys: Elin Townsend Discharge: Date of : 53 Report #: [id number] medications by few days. According to the CDC guidelines, his morphine mEq is 60 MME and there is a recent drug screen on the chart that is appropriate as well. PHYSICAL EXAMINATION: GENERAL: This is alert and orientated, well-developed, well-nourished 64-year-old gentleman who appears his stated age, placing his current pain score today at 3/10. HEENT: Normocephalic, atraumatic. Extraocular eye muscles are intact. Mucous membranes are moist. NECK: Without adenopathy or JVD. EXTREMITIES: Upper extremity strength judged to be 5/5 in all major muscle groups. His lower extremity strength judged to be 5/5 with good sensation from L1-S2. Pain radiates from his lower back down his right leg. He has a slow antalgic gait. IMPRESSION: 1. Symptomatic lumbar radiculopathy. 2. Lumbosacral spondylosis with radiculopathy. 3. Chronic low back pain. 4. Management of pain meds under written opioid agreement. We reviewed the fact that opiate medications are being used to provide analgesia adequate to support activities of daily living, not attempting to achieve a specific pain score on the 0-10 Visual Analog Scale. The current opiate medications are providing sufficient analgesia to allow the patient to participate in activities of daily living. The patient is not exhibiting any aberrant behavior suggestive of drug diversion. The patient is not having any adverse reactions to medications. The patient is not suffering from daytime somnolence or mental acuity changes. The patient is managing opiate-induced constipation with appropriate zmed-nnz-fznxeva agents and dietary considerations. The patient was counseled on concern for caution with operating a motor vehicle while using opiate medications. PLAN: 1. We discussed treatment options with the patient today. He finds his methadone very beneficial in controlling his pain as well as his adjunct medicines. Today, we will refill only his methadone 10 mg, #60, for today and 4 weeks supply. He does have plenty of his other medicines at this point. 2. We did discuss the COVID-19 virus and if there would be a potential for shortage of medications, I encouraged him on less painful days to try and take slightly less of his medications in case there is an interruption in supply. He verbalizes understanding, some days he is already taking 15 mg and not 20. He will continue to do so. I encouraged the patient to fill his meds today at the pharmacy, even though he is due in a few days. [facility] [address] [place] [address] PAIN MANAGEMENT CONSULTATION Name: COSMO HANNA JR Room #: REG [facility]#: [id number] Admission: 12/22/19 Attend Phys: Elin Townsend Discharge: Date of : 53 Report #: [id number] 3. The patient is seen in collaboration with Dr. Narinder Butterfield. The patient will return in 2 months for medication management. <ELECTRONICALLY SIGNED> By: Elin Townsend 12/23/19 1331 [id number] Elin Townsend /jamil
== END ==
LOC: PAIN 06:54
DX: M47.27 Other spondylosis with radiculopathy, lumbosacral region (principal); F11.220 Opioid dependence with intoxication, uncomplicated; M79.604 Pain in right leg; Z88.0 Allergy status to penicillin; Z79.899 Other long term (current) drug therapy

== ENCOUNTER → 2020-02-16 | Outpatient (CLI) | payer OTHER ==
[~2020-02-16] VITALS: Ht 177.8 cm; Wt 104.9 kg
[2020-02-16 13:33] VITALS: BP 150/81
--- NOTE | 2020-02-16 13:35 | NUR ---
Pain Clinic Assessment: 1. History of Osteoarthritis: BACK History of Rheumatoid Arthritis: DENIES 2. Height: 5 ft. 10 in. 177.8 cm. Weight: 231.2 lb. oz. 104.872 kg. Patient's BMI: 33.2 3. Vital Signs: BP: 150/81 Pulse: 55 Resp: 18 Temp: 02 Sat: 97 ECG Mon: 4. Pain Intensity: 4 5. Fall Risk: Dizziness: Needs help standing or walking: Fallen in the last 3 months: Fall risk comments: 6. Patient on Blood Thinner: None 7. History of Hypertension: Y 8. Opioid Therapy greater than 6 weeks: Y Opiate Contract Signed: 10/31/17 9. Risk Assessment Tool Provided: LOW RISK 10/01 10. Functional Assessment Tool: 11. Recreational Drug Use: Never Drug Type: Tobacco Use: Former Smoker Tobacco Type: Cigarettes Amount or Packs/day: 1 How Many Years: 20 Alcohol Use: No Frequency: Quant:
--- NOTE | 2020-02-17 07:32 | HPC ---
[facility] [address] [place] [address] PAIN MANAGEMENT CONSULTATION Name: COSMO HANNA JR Room #: REG [facility] M..#: [id number] Admission: 02/16/20 Attend Phys: Elin Townsend Discharge: Date of : 53 Report #: [id number] THIS REPORT FOR: cc: May Frank. DO May Frank. DO Elin Townsend ~ CC: Juan Antonio Mercedes DO DATE OF SERVICE: 02/16/2020 CHIEF COMPLAINT: Low back pain and right lower extremity pain. HISTORY OF PRESENT ILLNESS: This is a 64-year-old gentleman who returns to the pain clinic today for refill of his opioid medications that he uses to help treat his ongoing low back pain. He does also have right leg pain and occasional neck pain. Today, he is reporting a pain score of 4/10, feels that it is an aching, sharp pain, worse with activity and as the day progresses his pain does increase. He states the medications as well as stretching are beneficial. He has recently started putting a sleeping roll behind his head and feels that has been beneficial in decreasing some of his head and neck pain. He is contemplating seeing a chiropractor to help with some low back discomfort, though since the COVID virus outbreak, the chiropractors have been closed, so he is leery about going to those appointments. Today, he is here requesting refills of his methadone and his other adjunctive medications. He denies any problems with daytime sleepiness or constipation as a result of any of his medications. ALLERGIES: PENICILLIN. CURRENT LIST OF MEDICATIONS: Methadone 10 mg b.i.d., methocarbamol 750 mg t.i.d., gabapentin 600 mg q.i.d., diclofenac 50 mg b.i.d., Remeron, propranolol, Protonix, lisinopril/hydrochlorothiazide. PATIENT'S PQRS: 1. 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 Denies any rheumatoid arthritis. 2. Height is 5 feet 10 inches, weight is 231, BMI is 33. 3. Vital signs 150/81, pulse is 55, respirations 18, oxygen sat is 97%. 4. Pain score is 4/10. 5. Denies dizziness, does not need help walking or standing, has not fallen in the last 3 months. 6. The patient is not on any blood thinners, but does take medicine for hypertension. His opioid therapy is greater than 6 weeks; therefore, an opioid signed contract is on the chart. 7. Risk assessment is low. Functional assessment is 43/70. 8. Recreational drug use, he denies. He is a former [place] [address] PAIN MANAGEMENT CONSULTATION Name: COSMO HANNA Room #: REG [facility] Ross#: [id number] Admission: 02/16/20 Attend Phys: Elin Townsend Discharge: Date of : 53 Report #: [id number] alcohol. According to the prescription monitoring system, the patient is filling appropriately for his medications. He is due to fill his medications early next week at his local pharmacy. There is a urine drug screen on the chart that is appropriate for his medications as well. According to the CDC guidelines, his morphine mEq is 60 MMEs per day. PHYSICAL EXAMINATION: GENERAL: This is alert and orientated, well-developed, well-nourished 64-year-old gentleman who appears his stated age, placing his current pain score today at 4/10. HEENT: Normocephalic, atraumatic. Extraocular eye muscles are intact. He is wearing a mask. NECK: He has tenderness in his cervical spine that radiates into his bilateral shoulders and into his occipital area, worse with flexion and extension. Pain is increased with flexion and extension. MUSCULOSKELETAL: He has tenderness in his lumbosacral region that radiates into his right leg. His lower extremity strength judged to be 5/5 in all major muscle groups. He has a slow antalgic gait. IMPRESSION: 1. Symptomatic lumbar radiculopathy. 2. Lumbosacral spondylosis with radiculopathy. 3. Cervical pain. 4. Chronic low back pain. 5. Management of opioid medications under written agreement. We reviewed the fact that opiate medications are being used to provide analgesia adequate to support activities of daily living, not attempting to achieve a specific pain score on the 0-10 Visual Analog Scale. The current opiate medications are providing sufficient analgesia to allow the patient to participate in activities of daily living. The patient is not exhibiting any aberrant behavior suggestive of drug diversion. The patient is not having any adverse reactions to medications. The patient is not suffering from daytime somnolence or mental acuity changes. The patient is managing opiate-induced constipation with appropriate mqpo-gzh-vxzhxcz agents and dietary considerations. The patient was counseled on concern for caution with operating a motor vehicle while using opiate medications. A physical exam was performed and the patient's functional status was evaluated. All patients with back pain were advised against the bed rest greater than 4 days and were advised to return to normal activities. Pain score assessment was noted and the treatment plan was reviewed with the patient. All current medications, both prescribed and OTC were reviewed and reconciled on the electronic medical record. Tobacco screening was accomplished and smoking [address] [address] PAIN MANAGEMENT CONSULTATION Name: CUTCOSMO IZAGUIRRE JR Room #: REG [facility].#: [id number] Admission: 02/16/20 Attend Phys: Elin Townsend Discharge: Date of : 53 Report #: [id number] cessation was advised when indicated. BMI was noted and diet/exercise modification was recommended for all patients following outside normal parameters. I reviewed with the patient today their responsibilities to safeguard prescription medications, reviewed their responsibility to utilize medications only as prescribed by the physician. They are to seek and receive pain medications only from 1 physician group ( [facility] They are to use 1 pharmacy and keep the clinic informed if they change pharmacies. Their responsibilities include making followup visits in a timely fashion and to avoid abrupt discontinuation of medication usage. Their responsibilities further include bringing their medications (bottles from the pharmacy with residual pills) to the visit for possible confirmation of pill counts and the patient understands it is their responsibility to submit to random drug screens to ensure both that the medications prescribed are present, and that no other controlled substances are present. All prescriptions provided today were generated electronically. PLAN: 1. We discussed treatment options with the patient today. The patient finds his medications very beneficial in controlling his pain with very minimal side effects. He would like refills of his methadone. We will have Dr. Juan Antonio Mercedes send these electronically for methadone 10 mg, #60, for today and 4 weeks' supply to his local pharmacy. 2. After much discussion trying to locate his mail off pharmacy, he was given prescriptions to send to his [facility] pharmacy for diclofenac 50 mg b.i.d., #180 with 3 refills, Robaxin 750 t.i.d., #270 with 3 refills and gabapentin 600 mg q.i.d., #360 with 3 refills. This is a total of a year supply. The patient is to mail these to his pharmacy himself. He is to obtain the fax number for fills in the future that we may send prescriptions too. The patient and verbalized understanding. 3. The patient will return to our clinic in 2 months for a visit. The patient is seen today in collaboration with Dr. Juan Antonio Mercedes. <ELECTRONICALLY SIGNED> By: Elin Townsend 02/17/20 0732 [id number] Elin Townsend /nt
== END ==
LOC: PAIN 07:05
DX: M47.27 Other spondylosis with radiculopathy, lumbosacral region (principal); G89.29 Other chronic pain; Z79.891 Long term (current) use of opiate analgesic

== ENCOUNTER → 2020-04-19 | Outpatient (CLI) | payer OTHER ==
[~2020-04-19] VITALS: Ht 177.8 cm; Wt 104.8 kg
[2020-04-19 13:42] VITALS: BP 148/95
--- NOTE | 2020-04-19 13:49 | NUR ---
Pain Clinic Assessment: 1. History of Osteoarthritis: BACK History of Rheumatoid Arthritis: Not Applicable 2. Height: 5 ft. 10 in. 177.8 cm. Weight: 231.0 lb. oz. 104.781 kg. Patient's BMI: 33.1 3. Vital Signs: BP: 148/95 Pulse: 73 Resp: 20 Temp: 02 Sat: 96 ECG Mon: 4. Pain Intensity: 5-6 5. Fall Risk: Dizziness: N Needs help standing or walking: N Fallen in the last 3 months: N Fall risk comments: 6. Patient on Blood Thinner: None 7. History of Hypertension: Y 8. Opioid Therapy greater than 6 weeks: Y Opiate Contract Signed: 10/31/17 9. Risk Assessment Tool Provided: LOW RISK 10/01 10. Functional Assessment Tool: 11. Recreational Drug Use: Never Drug Type: Tobacco Use: Former Smoker Tobacco Type: Amount or Packs/day: How Many Years: Alcohol Use: No Frequency: Quant:
--- NOTE | 2020-04-20 08:18 | HPC ---
[facility] [address] [place] [address] PAIN MANAGEMENT CONSULTATION Name: COSMO HANNA JR Room #: REG [facility].#: [id number] Admission: 04/19/20 Attend Phys: Elin Townsend Discharge: Date of : 53 Report #: [id number] THIS REPORT FOR: cc: May Frank. DO May Frank. DO Elin Townsend ~ CC: Juan Antonio Mercedes DO DATE OF SERVICE: 04/19/2020 CHIEF COMPLAINT: Low back pain and right lower extremity pain. HISTORY OF PRESENT ILLNESS: This is a 64-year-old gentleman who returns to the pain clinic today for refill of his methadone that he uses to help treat his ongoing low back pain. It does radiate down his legs bilaterally as well. Today, he is rating his pain a 5-6, complaining that it is tender and sore, worse with any activity and worse as the day progresses. He states he has been able to work and caring for the animals in the yard, but then does return to the house to rest for a while and stretch. He feels the medications are adequate and helping him control his pain as well. He denies problems with constipation and if he does have an issue he will take MiraLax for a few days and then that resolves. He denies any somnolence or overmedicated feeling during the day. ALLERGIES: PENICILLIN. CURRENT LIST OF MEDICATIONS: Gabapentin 600 q.i.d., diclofenac tabs, Robaxin, methadone 10 mg b.i.d., Remeron, propranolol, Protonix, lisinopril and MiraLax. PQRS: 1. He has a history of osteoarthritis in his back. Denies any rheumatoid arthritis. 2. Height is 5 feet 10 inches, weight is 231, BMI is 33. 3. Vital signs 148/95, pulse is 73, respirations 20, oxygen sat is 96%. Pain score is 5-6. Fall risk; denies dizziness, does not need help walking or standing, has not fallen in the last 3 months. The patient is not on any blood thinners, but does take medicine for hypertension. Opioid therapy is greater than 6 weeks; therefore, an opioid signed contract is on the chart. Risk assessment is low. Functional assessment is 43/70. Recreational drug use, denies. He is a former smoker and does not drink alcohol. According to the prescription monitoring system, the patient is due to fill his medications early next week. His morphine milliequivalent according to the CDC guidelines is 60 MME. There is a drug screen on the chart that was appropriate within the last year. PHYSICAL EXAMINATION: [place] [address] PAIN MANAGEMENT CONSULTATION Name: COSMO HANNA Room #: REG [facility]IE Ross#: [id number] Admission: 04/19/20 Attend Phys: Elin Townsend Discharge: Date of : 53 Report #: [id number] GENERAL: This is alert and orientated, well-developed, well-nourished, and well-hydrated 64-year-old gentleman who appears his stated age, placing his current pain score at 5-6. HEENT: Normocephalic, atraumatic. He is wearing a mask. MUSCULOSKELETAL: He has tenderness in the lumbosacral region of his spine that radiates into his bilateral legs, right greater than the left. His lower extremity strength judged to be symmetrical at 5/5 with good sensation from L1-S2. He does have a slightly antalgic gait. IMPRESSION: 1. Symptomatic lumbar radiculopathy. 2. Lumbosacral spondylosis with radiculopathy. 3. Chronic low back pain. 4. Management of medications under written opioid agreement. We reviewed the fact that opiate medications are being used to provide analgesia adequate to support activities of daily living, not attempting to achieve a specific pain score on the 0-10 Visual Analog Scale. The current opiate medications are providing sufficient analgesia to allow the patient to participate in activities of daily living. The patient is not exhibiting any aberrant behavior suggestive of drug diversion. The patient is not having any adverse reactions to medications. The patient is not suffering from daytime somnolence or mental acuity changes. The patient is managing opiate-induced constipation with appropriate mcvc-vbx-vnqnqde agents and dietary considerations. The patient was counseled on concern for caution with operating a motor vehicle while using opiate medications. A physical exam was performed and the patient's functional status was evaluated. All patients with back pain were advised against the bed rest greater than 4 days and were advised to return to normal activities. Pain score assessment was noted and the treatment plan was reviewed with the patient. All current medications, both prescribed and OTC were reviewed and reconciled on the electronic medical record. Tobacco screening was accomplished and smoking cessation was advised when indicated. BMI was noted and diet/exercise modification was recommended for all patients following outside normal parameters. I reviewed with the patient today their responsibilities to safeguard prescription medications, reviewed their responsibility to utilize medications only as prescribed by the physician. They are to seek and receive pain medications only from 1 physician group ([facility]). They are to use 1 pharmacy and keep the clinic informed if they change pharmacies. Their responsibilities include making followup visits in a timely fashion and to avoid abrupt discontinuation of medication usage. Their responsibilities further include bringing their medications (bottles from the pharmacy with residual pills) to the visit for possible confirmation of pill counts and the patient [facility] [address] [place] [address] PAIN MANAGEMENT CONSULTATION Name: COSMO HANNA JR Room #: REG [facility] M.R.#: [id number] Admission: 04/19/20 Attend Phys: Elin Townsend Discharge: Date of : 53 Report #: [id number] understands it is their responsibility to submit to random drug screens to ensure both that the medications prescribed are present, and that no other controlled substances are present. All prescriptions provided today were generated electronically. PLAN: 1. We discussed treatment options with the patient today. He feels that the methadone is quite beneficial in controlling his pain. We will have Dr. Juan Antonio Mercedes send methadone 10 mg b.i.d., #60 with 1 refill to be released in 4 weeks to his [facility]. 2. We did discuss that he had received a year supply of his Robaxin, gabapentin and diclofenac that he mailed to his mail order pharmacy at [facility]. He will not need that medication for a year. We do have the information for next year's refills to send via fax. 3. The patient will return in 2 months. The patient is seen today in collaboration with Dr. Juan Antonio Mercedes. <ELECTRONICALLY SIGNED> By: Elin Townsend 04/20/20 0818 [id number] 1831 Elin Townsend /jamil
== END ==
LOC: PAIN 07:09
PROVIDERS: ATTEND Clinical Nurse Specialist Adult Health
DX: M47.27 Other spondylosis with radiculopathy, lumbosacral region (principal); M79.604 Pain in right leg; F11.20 Opioid dependence, uncomplicated; Z88.0 Allergy status to penicillin; Z79.899 Other long term (current) drug therapy

== ENCOUNTER → 2020-06-16 | Outpatient (CLI) | payer OTHER ==
[~2020-06-16] VITALS: Ht 177.8 cm; Wt 103.7 kg
[~2020-06-16] MED LIST changes: +IRON325 M1 PO; +VITAMIN B-12100 MC1 PO
[2020-06-16 10:22] VITALS: BP 136/79
--- NOTE | 2020-06-16 10:35 | NUR ---
Pain Clinic Assessment: 1. History of Osteoarthritis: BACK History of Rheumatoid Arthritis: Not Applicable 2. Height: 5 ft. 10 in. 177.8 cm. Weight: 228.6 lb. oz. 103.692 kg. Patient's BMI: 32.8 3. Vital Signs: BP: 136/79 Pulse: 60 Resp: 16 Temp: 02 Sat: 100 ECG Mon: 4. Pain Intensity: 6 5. Fall Risk: Dizziness: N Needs help standing or walking: N Fallen in the last 3 months: N Fall risk comments: 6. Patient on Blood Thinner: None 7. History of Hypertension: Y 8. Opioid Therapy greater than 6 weeks: Y Opiate Contract Signed: 10/31/17 9. Risk Assessment Tool Provided: LOW RISK 10/01 10. Functional Assessment Tool: 11. Recreational Drug Use: Never Drug Type: Tobacco Use: Former Smoker Tobacco Type: Amount or Packs/day: How Many Years: Alcohol Use: No Frequency: Quant:
== END ==
LOC: PAIN 06:53
PROVIDERS: ATTEND Anesthesiology Pain Medicine
DX: M47.27 Other spondylosis with radiculopathy, lumbosacral region (principal); M54.5 Low back pain; F11.20 Opioid dependence, uncomplicated; M79.604 Pain in right leg; Z88.0 Allergy status to penicillin; Z79.899 Other long term (current) drug therapy

== ENCOUNTER → 2020-08-18 | Outpatient (CLI) | payer OTHER ==
[~2020-08-18] VITALS: Ht 177.8 cm; Wt 102.1 kg
[2020-08-18 09:51] VITALS: BP 166/79
--- NOTE | 2020-08-18 09:55 | NUR ---
Pain Clinic Assessment: 1. History of Osteoarthritis: BACK History of Rheumatoid Arthritis: Not Applicable 2. Height: 5 ft. 10 in. 177.8 cm. Weight: 225.0 lb. oz. 102.060 kg. Patient's BMI: 32.3 3. Vital Signs: BP: 166/79 Pulse: 54 Resp: 16 Temp: 02 Sat: 98 ECG Mon: 4. Pain Intensity: 5 5. Fall Risk: Dizziness: N Needs help standing or walking: N Fallen in the last 3 months: N Fall risk comments: 6. Patient on Blood Thinner: None 7. History of Hypertension: Y 8. Opioid Therapy greater than 6 weeks: Y Opiate Contract Signed: 10/31/17 9. Risk Assessment Tool Provided: LOW RISK 1 10. Functional Assessment Tool: 50/70 11. Recreational Drug Use: Never Drug Type: Tobacco Use: Former Smoker Tobacco Type: Amount or Packs/day: How Many Years: Alcohol Use: No Frequency: Quant:
--- NOTE | 2020-08-21 15:59 | HPC ---
[facility] [place] [place] [address] PAIN MANAGEMENT CONSULTATION Name: COSMO HANNA JR Room #: REG [facility].#: [id number] Admission: 08/18/20 Attend Phys: Elin Townsend Discharge: Date of : 53 Report #: [id number] THIS REPORT FOR: cc: May Frank. May Perez. Elin Méndez ~ CC: Elin Luna MD DATE OF SERVICE: 08/18/2020 CHIEF COMPLAINT: Low back pain and right lower extremity pain, right shoulder pain. HISTORY OF PRESENT ILLNESS: This is a 65-year-old gentleman who is well known to the pain clinic. Today, he is returning for refills of his medication. As he recall, he does have pain in his low back that radiates down his legs. He also has right shoulder pain. He notes that activities of daily living can increase his pain. Today, he is rating his pain score at 5/10. He reports having more aching sensation that he had in the past. He does continue to be as active as he is able and stretch every day and reports walking and standing do increase his pain. He reports at times he does have issues with constipation and utilizes MiraLax medication. ALLERGIES: PENICILLIN. CURRENT MEDICATIONS: Methadone 10 mg b.i.d., iron, vitamin B12, gabapentin, diclofenac tablets, methocarbamol, Remeron, Inderal, Protonix, lisinopril, hydrochlorothiazide. PQRS: 1. He does have a history of osteoarthritis in his back and he denies any rheumatoid arthritis. 2. Height is 5 feet 10 inches, weight is 225. BMI is 32. 3. Vital signs 166/79, pulse is 54, respirations 16, oxygen sat is 98. 4. Pain score is 5/10. 5. Denies dizziness, does not need help walking or standing, has not fallen in the last 3 months. 6. The patient is not on any blood thinners, but does have a history of hypertension. 7. Opioid therapy is greater than 6 weeks; therefore, an opioid signed contract is on the chart. Risk assessment is low. Functional assessment is 50/70. 8. Recreational drug use, he denies. He is a former smoker and does not drink alcohol. According to the prescription monitoring system, the patient is filling [facility] [address] [place] [address] PAIN MANAGEMENT CONSULTATION Name: COSMO HANNA Room #: REG [facility] Ross#: [id number] Admission: 08/18/20 Attend Phys: Elin Townsend Discharge: Date of : 53 Report #: [id number] appropriately. He is due to fill his medications today, filling them in a timely fashion. PHYSICAL EXAMINATION: GENERAL: This is alert and orientated, well-developed, well-nourished 65-year-old gentleman who appears his stated age. His speech is fluent, rating his pain score at 5/10. HEENT: Normocephalic, atraumatic. Extraocular eye muscles are intact. Mucous membranes are moist. He is wearing a mask. NECK: Without adenopathy or JVD. Movement in the right shoulder is meet with increasing pain and decrease ROM, is able to raise actively 45 degrees and passively 180. EXTREMITIES: Upper extremity strength is symmetrical at 5/5. His pain in the lumbosacral region that does radiate down his legs, greater on the left. He has a slightly antalgic gait. IMPRESSION: 1. Symptomatic lumbar radiculopathy. 2. Lumbosacral spondylosis with radiculopathy. 3. Chronic low back pain. 4. Management of written opioid medications. 5. Chronic right shoulder pain. We reviewed the fact that opiate medications are being used to provide analgesia adequate to support activities of daily living, not attempting to achieve a specific pain score on the 0-10 Visual Analog Scale. The current opiate medications are providing sufficient analgesia to allow the patient to participate in activities of daily living. The patient is not exhibiting any aberrant behavior suggestive of drug diversion. The patient is not having any adverse reactions to medications. The patient is not suffering from daytime somnolence or mental acuity changes. The patient is managing opiate-induced constipation with appropriate hweo-hol-zzhsgww agents and dietary considerations. The patient was counseled on concern for caution with operating a motor vehicle while using opiate medications. PLAN: 1. We discussed treatment options with the patient today. The patient does complain of ongoing right shoulder pain. He does perform stretching exercises for me today, but has increasing pain with abduction greater than 45 degrees. He is able to passively move his arm to 180. I encouraged the patient to continue these exercises at home to prevent frozen right shoulder. We did discuss possible physical therapy, but at this time, he will continue his stretches. 2. He does find the medications very beneficial. We will have Dr. Butterfield continue his methadone 10 mg, #60 for today and 4-week supply. Scripts will be given to the patient. He does continue his gabapentin, Robaxin and diclofenac and no scripts needed for these medications today. [facility] [address] [place] [address] PAIN MANAGEMENT CONSULTATION Name: COSMO HANNA JR Room #: REG [facility] Rose#: [id number] Admission: 08/18/20 Attend Phys: Elin Townsend Discharge: Date of : 53 Report #: [id number] 3. The patient is seen today in collaboration with Dr. Butterfield. The patient is worried about the COVID outbreak and is wondering if he will be able to do a telemedicine appointment in his next visit. I explained to him that we will make that decision based on the COVID numbers in mid September. <ELECTRONICALLY SIGNED> By: Elin Townsend 08/21/20 1559 [id number] [id number] Elin Townsend /nt
== END ==
LOC: PAIN 06:58
PROVIDERS: ATTEND Clinical Nurse Specialist Adult Health
DX: M47.26 Other spondylosis with radiculopathy, lumbar region (principal); G89.29 Other chronic pain; M25.511 Pain in right shoulder; Z79.891 Long term (current) use of opiate analgesic; Z79.899 Other long term (current) drug therapy

== ENCOUNTER → 2020-10-18 | Outpatient (CLI) | payer OTHER ==
[~2020-10-18] VITALS: Ht 177.8 cm; Wt 101.8 kg
[2020-10-18 12:39] VITALS: BP 178/79
--- NOTE | 2020-10-18 12:54 | NUR ---
Pain Clinic Assessment: 1. History of Osteoarthritis: BACK History of Rheumatoid Arthritis: Not Applicable 2. Height: 5 ft. 10 in. 177.8 cm. Weight: 224.4 lb. oz. 101.787 kg. Patient's BMI: 32.2 3. Vital Signs: BP: 178/79 Pulse: 56 Resp: 14 Temp: 02 Sat: 99 ECG Mon: 4. Pain Intensity: 5 5. Fall Risk: Dizziness: N Needs help standing or walking: N Fallen in the last 3 months: N Fall risk comments: 6. Patient on Blood Thinner: None 7. History of Hypertension: Y 8. Opioid Therapy greater than 6 weeks: Y Opiate Contract Signed: 10/31/17 9. Risk Assessment Tool Provided: LOW RISK 1 10. Functional Assessment Tool: 50/70 11. Recreational Drug Use: Never Drug Type: Tobacco Use: Former Smoker Tobacco Type: Amount or Packs/day: How Many Years: Alcohol Use: No Frequency: Quant:
--- NOTE | 2020-10-19 08:43 | HPC ---
[facility] [address] [place] [address] PAIN MANAGEMENT CONSULTATION Name: COSMO HANNA JR Room #: REG [facility].#: [id number] Admission: 10/18/20 Attend Phys: Elin Townsend Discharge: Date of : 53 Report #: [id number] THIS REPORT FOR: cc: May Frank. May Perez. Elin Méndez ~ DATE OF SERVICE: 10/18/2020 CHIEF COMPLAINT: Low back pain, right lower extremity pain and paresthesias. HISTORY OF PRESENT ILLNESS: This is a 65-year-old gentleman who returns to the pain clinic today for a refill of his medications that he uses to help treat his ongoing low back pain. Today, he is reporting increasing pain in his low back that is radiating to his right hip area. He reports this has been bothersome in the last 3-4 days and he is unsure what causes increase in pain. Due to this increasing painful area, he is rating his pain score as 6/10 today, stating it is an aching, stabbing sensation. Usually, he states his pain medication controls his pain slightly better than it is currently. He reports walking, standing and lifting do cause increasing pain. Overall, his pain medication as well as sitting and stretching on a daily basis are typically beneficial. He denies any daytime somnolence or constipation that is not relieved by [id number] medications. ALLERGIES: PENICILLIN. CURRENT LIST OF MEDICATIONS: Methadone 10 mg b.i.d., iron, vitamin B, gabapentin, diclofenac, methocarbamol, Remeron, Inderal, Protonix, lisinopril/hydrochlorothiazide. PQRS: 1. He has arthritic changes in his back. Denies any rheumatoid arthritis. 2. Height is 5 feet 10 inches, weight is 224, BMI is 32. 3. Vital signs: 178/79, pulse is 56, respirations 14, oxygen sat is 99%. 4. Pain score is 5/10. 5. Denies dizziness, does not need assistance with ambulation. Has not fallen in the last 3 months. 6. The patient is not on any blood thinners, but he does take medicine for hypertension. 7. Opiate therapy is greater than 6 weeks; therefore, an opioid signed contract is on the chart. Risk assessment is low. Functional assessment is 50/70. 8. Recreational drug use, he denies. He is a former smoker and does not drink alcohol. According to the prescription monitoring system, the patient is filling appropriately in a timely fashion. His morphine milliequivalent is 60 MME. There is a recent drug screen on the chart. [place] [address] PAIN MANAGEMENT CONSULTATION Name: COSMO HANNA Room #: REG [facility]#: [id number] Admission: 10/18/20 Attend Phys: Elin Townsend Discharge: Date of : 53 Report #: [id number] visit. He safeguards his medications and has an opioid agreement on the chart. PHYSICAL EXAMINATION: GENERAL: This is alert and orientated, well-developed, well-nourished 65-year-old gentleman who appears his stated age, placing his current pain score at 6/10 today. HEENT: Normocephalic, atraumatic. Extraocular eye muscles are intact. He is wearing a mask. MUSCULOSKELETAL: Tenderness in his lumbosacral spine that is radiating into his right hip. Lower extremity strength is symmetrical at 5/5 with good sensation from L1-S2. He walks with a slightly antalgic gait. IMPRESSION: 1. Symptomatic lumbar radiculopathy. 2. Lumbosacral spondylosis with radiculopathy. 3. Chronic low back pain. 4. Management of opioid medications under written agreement. PLAN: 1. We discussed treatment options with the patient today. The patient finds his methadone very beneficial, despite his increase in pain in the last few days. We did encourage him to use heat, ice or massage to that area. If the pain does continue to be bothersome and starts to radiate down his leg, he has been instructed to call the clinic for a possible injection. 2. The patient had scripts sent electronically by Dr. Butterfield for methadone 10 mg, #60, for today and 4-week supply. 3. We did discuss the COVID vaccine. The patient was hopeful to have this and has been calling his local health department for updates. Hopefully, he will have this and he will be inoculated prior to our next visit. 4. The patient is not neededing refills of Robaxin,Diclofenac or Gabapentin today. The patient is seen today in collaboration with Dr. Butterfield. <ELECTRONICALLY SIGNED> By: Elin Townsend 10/19/20 0843 [id number] 1510 Elin Townsend /jamil
== END ==
LOC: PAIN 06:53
PROVIDERS: ATTEND Clinical Nurse Specialist Adult Health
DX: M47.27 Other spondylosis with radiculopathy, lumbosacral region (principal); G89.29 Other chronic pain; Z79.891 Long term (current) use of opiate analgesic; Z79.899 Other long term (current) drug therapy; Z88.0 Allergy status to penicillin

== ENCOUNTER → 2020-12-13 | Outpatient (CLI) | payer OTHER ==
[~2020-12-13] VITALS: Ht 177.8 cm; Wt 101.2 kg
[~2020-12-13] MED LIST changes: +VOLTAREN GEL 1100 G2 TOP
[2020-12-13 12:49] VITALS: BP 139/83
--- NOTE | 2020-12-13 12:56 | NUR ---
Pain Clinic Assessment: 1. History of Osteoarthritis: BACK History of Rheumatoid Arthritis: Not Applicable 2. Height: 5 ft. 10 in. 177.8 cm. Weight: 223.0 lb. oz. 101.152 kg. Patient's BMI: 32.0 3. Vital Signs: BP: 139/83 Pulse: 57 Resp: 16 Temp: 02 Sat: 97 ECG Mon: 4. Pain Intensity: 4-5 5. Fall Risk: Dizziness: N Needs help standing or walking: N Fallen in the last 3 months: N Fall risk comments: 6. Patient on Blood Thinner: None 7. History of Hypertension: Y 8. Opioid Therapy greater than 6 weeks: Y Opiate Contract Signed: 10/31/17 9. Risk Assessment Tool Provided: LOW RISK 1 10. Functional Assessment Tool: 50/ 11. Recreational Drug Use: Never Drug Type: Tobacco Use: Former Smoker Tobacco Type: Amount or Packs/day: How Many Years: Alcohol Use: No Frequency: Quant:
--- NOTE | 2020-12-14 14:50 | HPC ---
[facility] [address] [address] PAIN MANAGEMENT CONSULTATION Name: COSMO HANNA JR Room #: REG [facility] M..#: [id number] Admission: 12/13/20 Attend Phys: Elin Townsend Discharge: Date of : 53 Report #: [id number] THIS REPORT FOR: cc: May Frank. May Perez. Elin Méndez ~ DATE OF SERVICE: 12/13/2020 CHIEF COMPLAINT: Low back pain and bilateral shoulder pain. HISTORY OF PRESENT ILLNESS: This is a 65-year-old gentleman who returns for renewal of his medications today. He has continued to complain of ongoing low back pain that he has reported increasing over the last several months. We discussed this at his last visit and encouraged him to use heat, ice and continue his stretching that he has learned from physical therapy. He continues to do this on a daily basis as well as walk when the weather permits outside and continues to have low back pain. He states it is not radiating into his legs currently, though in the past he did have right leg discomfort. He also complains of bilateral shoulder pain due to arthritic issues. His pain is a 4-5/10 today, a constant, aching discomfort that is diminished some with his stretching as well as sitting down and his medications. He denies any issues with constipation, though he reports some GI upset recently in his lower abdomen colon area. The patient reports that this pain is worse after eating food. He has not seen his primary care doctor about this discomfort. ALLERGIES: PENICILLIN. CURRENT LIST OF MEDICATIONS: Methadone 10 mg b.i.d., iron, vitamin B12, gabapentin 600 mg q.i.d., diclofenac tablets 50 mg b.i.d., Robaxin, mirtazapine, Inderal, Protonix, lisinopril/hydrochlorothiazide. PQRS: 1. He has arthritic changes in his back and shoulders bilaterally. He denies any rheumatoid arthritis. 2. Height is 5 feet 10 inches, weight is 223, BMI is 32. 3. Vital signs; blood pressure 139/83, pulse is 57, respirations 16, oxygen sat is 97%. 4. Pain score is 4-5. 5. Denies dizziness, does not need help walking or standing, has not fallen in the last 3 months. 6. The patient is not on any blood thinners. He does take medicine for hypertension. 7. Opioid therapy is greater than 6 weeks; therefore, an opioid signed contract is on the chart. Risk assessment is low. Functional assessment is 50/70. 8. Recreational drug use, he denies. He is a former smoker [place] [address] PAIN MANAGEMENT CONSULTATION Name: COSMO HANNA Room #: REG [facility] Ross#: [id number] Admission: 12/13/20 Attend Phys: Elin Townsend Discharge: Date of : 53 Report #: [id number] alcohol. According to the prescription monitoring system, he is filling his meds appropriately in a timely fashion. He is due to fill his medications today morphine milliequivalent is 60 MME. We will collect a random drug screen and he is on opioid signed contract. PHYSICAL EXAMINATION: GENERAL: This is alert and orientated, well-developed, well-nourished 65-year-old gentleman who appears his stated age, placing his current pain score today at 4-5/10. HEENT: Normocephalic and atraumatic. Extraocular eye muscles are intact. He is wearing a mask. MUSCULOSKELETAL: Tenderness in his lumbosacral spine. Modified Gaenslen's test is positive for axial back pain. Tenderness at the L3-L4 level bilaterally. His lower extremity strength is symmetrical at 5/5. He has a slightly antalgic gait. Tenderness in his shoulders with active range of motion. ABDOMEN: Tenderness in his lower middle abdominal area below his umbilical. IMPRESSION: 1. Axial back back. 2. Facet Arthropathy at the L3-L4 level. 3. History of lumbar radiculopathy. 4. Lumbar spondylosis. 5. Management of complicated opioid medications under written agreement. PLAN: 1. We discussed treatment options with the patient today. We have discussed possible epidural versus facet injections in the past with this patient. He has continued his exercises as instructed as well as heat, ice and anti-inflammatories. They have not been beneficial in decreasing his pain. We did discuss a possible MRI. At this point, the patient is not ready to have another surgery if we were to find significant issues. He may consider a more conservative approach of a facet joint injection. This was discussed to him based on his findings of axial low back pain to try a bilateral facet injection at the L3-L4 level. This will be done by Dr. Narinder Butterfield. The patient will consider this and call to schedule the appointment at that time, we will seek authorization for this procedure. 2. He has had an MRI in the past. If injections were not beneficial, we would consider repeating a lumbar spine MRI without contrast. 3. Patient is to continue his stretching, heat and ice. 4. We will continue him on his methadone 10 mg tablets, #60 to release today and 4 weeks. These will be sent electronically by Dr. Butterfield. 5. The patient has been complaining of increasing GI pain, especially after eating. I am having the patient stop his diclofenac tablets that he takes twice a day to see if this may improve some of his symptoms. Also, encouraged him to [facility] [address] [place] [address] PAIN MANAGEMENT CONSULTATION Name: CUTCOSMO IZAGUIRRE JR Room #: REG [facility]..#: [id number] Admission: 12/13/20 Attend Phys: Elin Townsend Discharge: Date of : 53 Report #: [id number] talk to his primary care doctor and possibly have an EGD to verify that he does not have any ulcers. He was recently diagnosed with thrombocytopenia and has started iron tablets on a daily basis as well. We will have the patient try diclofenac gel to his shoulders and arthritic joints to see if this is beneficial without having the systemic effect of the oral anti-inflammatories. 6. The patient is scheduled to have his second COVID vaccination in 2 weeks. Time spent with the patient in consultation, reviewing imaging, and recent studies, clinical notes and physical reports as well as physical examination in correlation of findings and medical documentation to determine possible treatments 17 minutes. Time spent preparation for appointment, review of prescription monitoring system report, reviewing previous records and proposed treatment options and reviewing current medications 5 minutes. Time spent preparing and sending electronic prescriptions with collaborating physician, Dr. Narinder Butterfield, documentation of visit and plan of treatment 9 minutes. Total time spent 31 minutes. <ELECTRONICALLY SIGNED> By: Elin Townsend 12/14/20 1450 1419 1652 Elin Townsend /jamil
== END ==
LOC: PAIN 06:45
PROVIDERS: ATTEND Clinical Nurse Specialist Adult Health
DX: M47.26 Other spondylosis with radiculopathy, lumbar region (principal); Z79.891 Long term (current) use of opiate analgesic; Z79.899 Other long term (current) drug therapy

== ENCOUNTER → 2021-02-07 | Outpatient (CLI) | payer OTHER ==
[~2021-02-07] VITALS: Ht 177.8 cm; Wt 99.3 kg
[~2021-02-07] MED LIST changes: +METHOCARBAMOL750 MG PO
[2021-02-07 13:03] VITALS: BP 142/88
--- NOTE | 2021-02-07 13:06 | NUR ---
Pain Clinic Assessment: 1. History of Osteoarthritis: BACK History of Rheumatoid Arthritis: Not Applicable 2. Height: 5 ft. 10 in. 177.8 cm. Weight: 219.0 lb. oz. 99.338 kg. Patient's BMI: 31.4 3. Vital Signs: BP: 142/88 Pulse: 64 Resp: 16 Temp: 02 Sat: 95 ECG Mon: 4. Pain Intensity: 5 5. Fall Risk: Dizziness: N Needs help standing or walking: N Fallen in the last 3 months: N Fall risk comments: 6. Patient on Blood Thinner: None 7. History of Hypertension: Y 8. Opioid Therapy greater than 6 weeks: Y Opiate Contract Signed: 10/31/17 9. Risk Assessment Tool Provided: LOW RISK 1 10. Functional Assessment Tool: 50/70 11. Recreational Drug Use: Never Drug Type: Tobacco Use: Former Smoker Tobacco Type: Amount or Packs/day: How Many Years: Alcohol Use: No Frequency: Quant:
--- NOTE | 2021-02-08 15:20 | HPC ---
[facility] [address] [place] [address] PAIN MANAGEMENT CONSULTATION Name: COSMO HANNA JR Room #: REG [facility].#: [id number] Admission: 02/07/21 Attend Phys: Elin Townsend Discharge: Date of : 53 Report #: [id number] THIS REPORT FOR: cc: May Frank. May Perez. Elin Méndez ~ DOC #: [id number] cc: Demetrio Butterfield MD DATE OF SERVICE: 02/07/2021 CHIEF COMPLAINT: Low back pain, bilateral shoulder pain. HISTORY OF PRESENT ILLNESS: As you are aware, this is a 65-year-old gentleman who continues to have ongoing low back pain and bilateral shoulder pain. Today, he is also complaining of left knee discomfort. He is a longstanding patient of our clinic and does take methadone, which is controlling the majority of his pain. Today, he is reporting a pain score of 5/10, describing it as an aching, stabbing sensation that is worse with prolonged standing and walking as well as lifting, especially when he is active around his house. He believes his stretching as well as his medication are beneficial in decreasing his overall pain. At our last visit, the patient did complain of some burning sensation in his stomach in his lower colon. It was especially worse after eating. I encouraged him to stop taking his diclofenac tablets orally and provided him with diclofenac gel. The patient today reports he is no longer having any stomach or colon issues since stopping his oral nonsteroidal anti-inflammatory medications. He finds the Voltaren gel very beneficial in helping reduce some of his pain and would like to continue this medication for his arthritic joints. He does have some issues of constipation per his report and does take zeqt-bhw-veomgth medications to help combat this side effect. ALLERGIES: PENICILLIN. CURRENT LIST OF MEDICATIONS: Methadone 10 mg b.i.d., Voltaren gel, iron, vitamin B12, gabapentin 600 mg 4 times a day, Robaxin 750 mg t.i.d. p.r.n., mirtazapine, Inderal, Protonix, lisinopril, hydrochlorothiazide. PQRS: 1. He has a history of osteoarthritic changes in his back and hips and knees. Denies any rheumatoid arthritis. 3. Height is 5 feet 10 inches, weight is 219, BMI is 31. 3. Vital signs; blood pressure 142/88, pulse is 64, respirations 16, oxygen sat is 95%. 4. Pain score is 5/10. [address] [address] PAIN MANAGEMENT CONSULTATION Name: COSMO HANNA JR Room #: REG [facility].#: [id number] Admission: 02/07/21 Attend Phys: Elin Townsend Discharge: Date of : 53 Report #: [id number] 5. Denies dizziness. Does not need help walking or standing. Has not fallen in the last 3 months. 6. The patient is not on any blood thinners, but does take medicine for hypertension. 7. Opioid therapy is greater than six weeks; therefore, an opioid signed contract is on the chart. Risk assessment is low. Functional assessment is 50/70. 8. Recreational drug use, he denies. He is not a smoker and does not drink alcohol. According to the prescription monitoring system, he is due to fill his medications next week filling them in a timely fashion. His morphine mEq according to the CDC guidelines is 60 MME. We performed a urine drug screen on him at his last visit that is appropriate for his medications as well. PHYSICAL EXAMINATION: GENERAL: This is alert and orientated, well-developed, well-nourished, well-hydrated 65-year-old gentleman who appears his stated age rating his pain score today a 5/10. He is a good historian. HEENT: Normocephalic, atraumatic. Extraocular eye muscles are intact. He is wearing a mask. MUSCULOSKELETAL: Modified Gaenslen's test is positive for axial back pain. He has tenderness in his lumbosacral region at the L3-L4 level radiating bilaterally into his legs, greater on the right than the left. Lower extremity strength is symmetrical at 5/5. He has tenderness in his shoulders bilaterally with active range of motion. Tenderness in his left knee today with no edema noted. IMPRESSION: 1. Axial back pain. 2. Facet arthroscopy at the L3-L4 level. 3. History of lumbar radiculopathy. 4. Lumbar spondylosis. 5. Management of opioid medications under written agreement. 6. Osteoarthritis. PLAN: 1. We discussed treatment options with the patient today. The patient finds his medication beneficial. He does report that the significant increase in pain that he had had at his last appointment has slowly subsided. He does not believe he needs to schedule an MRI or have any injections that we did discuss previously. He would like to continue his methadone 10 mg b.i.d. Scripts will be sent electronically by Dr. Butterfield for 60 tablets for today and four week release. 2. The patient noticed a significant decrease in his GI symptoms since stopping his diclofenac tablets and has found the Voltaren gel beneficial in reducing [facility] [address] [place] [address] PAIN MANAGEMENT CONSULTATION Name: COSMO HANNA JR Room #: REG CLI Michele#: [id number] Admission: 02/07/21 Attend Phys: Elin Townsend Discharge: Date of : 53 Report #: [id number] some of his osteoarthritic issues. We will continue this medications sending it to his mail of pharmacy for 6 tubes with 3 refills. This is a total of 1 year supply. 3. We will also send his Robaxin 750 mg t.i.d., #270, with 3 refills and gabapentin 600 mg q.i.d., #360, with 3 refills for a total of a year supply of both these medications to his mail of pharmacy. These will be sent electronically. Time spent with the patient in consultation, reviewing recent studies and clinical notes and physician reports, physical examination and correlation of findings and medical documentation to determine possible treatments 15 minutes. Time spent in preparation for appointment reviewing prescription monitoring system reports, reviewing previous records and proposed treatment options, reviewing current medications 5 minutes. Time spent preparing and sending electronic prescriptions with collaborating physician, Dr. Narinder Butterfield and documentation of visit and plan of treatment 5 minutes. Total time spent 25 minutes. Elin Townsend NP AH/KDA <ELECTRONICALLY SIGNED> By: Elin Townsend 02/08/21 1520 1323 2311 Elin Townsend /jamil
== END ==
LOC: PAIN 09:24
PROVIDERS: ATTEND Clinical Nurse Specialist Adult Health
DX: M47.816 Spondylosis without myelopathy or radiculopathy, lumbar region (principal); M25.511 Pain in right shoulder; M25.512 Pain in left shoulder; M19.90 Unspecified osteoarthritis, unspecified site; F11.20 Opioid dependence, uncomplicated; Z88.8 Allergy status to other drugs, medicaments and biological substances; Z79.899 Other long term (current) drug therapy

== ENCOUNTER → 2021-04-11 | Outpatient (CLI) | payer OTHER ==
[~2021-04-11] VITALS: Ht 177.8 cm; Wt 98.5 kg
[2021-04-11 09:24] VITALS: BP 106/70
--- NOTE | 2021-04-11 09:56 | NUR ---
Pain Clinic Assessment: 1. History of Osteoarthritis: BACK History of Rheumatoid Arthritis: Not Applicable 2. Height: 5 ft. 10 in. 177.8 cm. Weight: 217.2 lb. oz. 98.521 kg. Patient's BMI: 31.2 3. Vital Signs: BP: 106/70 Pulse: 58 Resp: 16 Temp: 02 Sat: 98 ECG Mon: 4. Pain Intensity: 6 5. Fall Risk: Dizziness: N Needs help standing or walking: N Fallen in the last 3 months: N Fall risk comments: 6. Patient on Blood Thinner: None 7. History of Hypertension: Y 8. Opioid Therapy greater than 6 weeks: Y Opiate Contract Signed: 10/31/17 9. Risk Assessment Tool Provided: LOW RISK 1 10. Functional Assessment Tool: 50/ 11. Recreational Drug Use: Never Drug Type: Tobacco Use: Former Smoker Tobacco Type: Amount or Packs/day: How Many Years: Alcohol Use: No Frequency: Quant:
--- NOTE | 2021-04-12 08:29 | HPC ---
[facility] [place] [address] PAIN MANAGEMENT CONSULTATION Name: COSMO HANNA JR Room #: REG [facility].#: [id number] Admission: 04/11/21 Attend Phys: Elin Townsend Discharge: Date of : 53 Report #: [id number] THIS REPORT FOR: cc: May Frank. May Perez. Elin Méndez ~ cc: May Frank DO, Gibran Osman MD, Narinder Butterfield MD DATE OF SERVICE: 04/11/2021 CHIEF COMPLAINT: Low back pain, bilateral shoulder pain and right elbow pain. HISTORY OF PRESENT ILLNESS: This is a 65-year-old gentleman who returns to the pain clinic today for renewal of his medication and to discuss it on a new pain generator of right elbow. Today, the patient is reporting a pain score of 6/10. Pain is most problematic in his lower back and his bilateral shoulders and his right elbow. He describes his pain as an aching, stabbing, constant pain that is worse with walking, standing, or lifting his arm. Overall, his medications do help the majority of his pain except for his right elbow. Patient denies hitting his elbow are being stung and is unsure what is causing his pain that has started the last few days. He has not sought any medical attention for his right elbow discomfort today. ALLERGIES: PENICILLIN. CURRENT LIST OF MEDICATIONS: Methadone, Voltaren gel, iron, B12, gabapentin, Robaxin, mirtazapine, Inderal, Protonix, lisinopril and hydrochlorothiazide. PQRS: 1. He has osteoarthritic issues in his back. Denies any rheumatoid arthritis and osteoarthritis in his shoulder. Height is 5 feet 10 inches, weight is 217 pounds, BMI is 31. 2. Vital signs 106/70, pulse is 58, respirations 16, oxygen sat is 98%. 3. Pain score 6/10. 4. Denies dizziness, does not need help walking or standing, has not fallen in the last 3 months. 5. Patient is not on any blood thinners, but does take medicine for hypertension. 6. Opiate therapy is greater than 6 weeks; therefore, an opioid signed contract is on the chart. 7. Risk assessment is low. Functional assessment: 50-70. 8. Recreational drug use, he denies. He is a former smoker, does not drink alcohol. According to the prescription monitoring system, the patient is filling appropriately in a timely fashion. Morphine mEq is 60 MME. There is a drug screen on the chart that is appropriate for his medication as well. [address] [address] PAIN MANAGEMENT CONSULTATION Name: COSMO HANNA Room #: REG [facility] Ross#: [id number] Admission: 04/11/21 Attend Phys: Elin Townsend Discharge: Date of : 53 Report #: [id number] PHYSICAL EXAMINATION: GENERAL: This is alert and orientated, well-developed, well-nourished 65-year-old gentleman who appears his stated age, rating his pain score today at 6/10. HEENT: Normocephalic, atraumatic. Extraocular eye muscles are intact. He is wearing a mask. MUSCULOSKELETAL: Modified Gaenslen's test positive for axial back pain. He has tenderness in his lumbosacral region with no radicular symptoms today. Right elbow has a small effusion present, which is warm to the touch, slightly reddened. Lower extremity strength is symmetrical at 5/5, has tenderness in his bilateral shoulders with active range of motion. IMPRESSION: 1. Axial back pain. 2. Facet arthroscopy at the L3-L4 level. 3. History of lumbar radiculopathy. 4. Lumbar spondylosis. 5. Right elbow pain. 6. Management of opioids under written agreement. 7. Osteoarthritis. We reviewed the fact that opiate medications are being used to provide analgesia adequate to support activities of daily living, not attempting to achieve a specific pain score on the 0-10 Visual Analog Scale. The current opiate medications are providing sufficient analgesia to allow the patient to participate in activities of daily living. The patient is not exhibiting any aberrant behavior suggestive of drug diversion. The patient is not having any adverse reactions to medications. The patient is not suffering from daytime somnolence or mental acuity changes. The patient is managing opiate-induced constipation with appropriate [id number] agents and dietary considerations. The patient was counseled on concern for caution with operating a motor vehicle while using opiate medications PLAN: 1. We discussed treatment options with the patient today. The patient comes to the clinic today complaining of right elbow pain. It is warm to the touch with effusion. The patient does not recall hitting his elbow or any bites and has not sought any medical attention. I encouraged the patient to see his primary care doctor for possible antibiotics. It could be a cellulitis.We encuraged him to to see his orthopedic physician. Encouraged the patient to call today to set up an appointment with his primary care doctor. was present during this discussion as well. 2. We will continue him on his methadone 10 mg tablets b.i.d. The patient does find this beneficial in helping with his overall pain generators. Scripts will be sent electronically for [address] [address] PAIN MANAGEMENT CONSULTATION Name: COSMO HANNA JR Room #: REG [facility].#: [id number] Admission: 04/11/21 Attend Phys: Elin Townsend Discharge: Date of : 53 Report #: [id number] 3. We will offer the patient Voltaren gel 3%. We are unsure if his insurance company will pay for this stronger medication. Currently, he has been using Voltaren 1% and has not been beneficial in helping his osteoarthritic joints. We did discuss that he may need to discuss with orthopedic shoulder surgery as well as it is becoming more problematic for him. 4. Patient will return in 2 months. No adjunct medications needed to be refilled today. Time spent with the patient in consultation, reviewing recent studies and clinical notes, physician reports, physical examination and correlation of findings, medical documentation to determine possible treatment options, 16 minutes. Time spent preparing for appointment, reviewing prescription monitoring system reports, reviewing previous records and proposed treatment options and reviewing current medications, 5 minutes. Time spent preparing and sending electronic prescriptions with collaborating physician, Dr. Narinder Butterfield and discussing the plan of treatment and documentation of treatment plan, 5 minutes. Total time spent 26 minutes. <ELECTRONICALLY SIGNED> By: Elin Townsend 04/12/21 [id number] Elin Townsend /jamil
== END ==
LOC: PAIN 08:03
PROVIDERS: ATTEND Clinical Nurse Specialist Adult Health
DX: M47.26 Other spondylosis with radiculopathy, lumbar region (principal); M25.521 Pain in right elbow; M19.90 Unspecified osteoarthritis, unspecified site; Z79.891 Long term (current) use of opiate analgesic; Z79.899 Other long term (current) drug therapy

== ENCOUNTER → 2021-06-13 | Outpatient (CLI) | payer OTHER ==
[~2021-06-13] VITALS: Ht 177.8 cm; Wt 99.3 kg
[2021-06-13 10:43] VITALS: BP 139/62
--- NOTE | 2021-06-13 10:46 | NUR ---
Pain Clinic Assessment: 1. History of Osteoarthritis: BACK History of Rheumatoid Arthritis: Not Applicable 2. Height: 5 ft. 10 in. 177.8 cm. Weight: 219.0 lb. oz. 99.338 kg. Patient's BMI: 31.4 3. Vital Signs: BP: 139/62 Pulse: 64 Resp: 16 Temp: 02 Sat: 96 ECG Mon: 4. Pain Intensity: 4 5. Fall Risk: Dizziness: N Needs help standing or walking: N Fallen in the last 3 months: N Fall risk comments: 6. Patient on Blood Thinner: None 7. History of Hypertension: Y 8. Opioid Therapy greater than 6 weeks: Y Opiate Contract Signed: 10/31/17 9. Risk Assessment Tool Provided: LOW RISK 1 10. Functional Assessment Tool: 50/70 11. Recreational Drug Use: Never Drug Type: Tobacco Use: Former Smoker Tobacco Type: Amount or Packs/day: How Many Years: Alcohol Use: No Frequency: Quant:
== END ==
LOC: PAIN 10:01
PROVIDERS: ATTEND Anesthesiology Pain Medicine
DX: G89.29 Other chronic pain (principal); M47.27 Other spondylosis with radiculopathy, lumbosacral region; M25.511 Pain in right shoulder; M25.512 Pain in left shoulder; Z96.642 Presence of left artificial hip joint; Z79.899 Other long term (current) drug therapy

== ENCOUNTER → 2021-08-10 | Outpatient (CLI) | payer OTHER ==
[~2021-08-10] VITALS: Ht 177.8 cm; Wt 96.8 kg
[~2021-08-10] MED LIST changes: +MEDROLDOSEPACK PO; +VOLTAREN ARTHRI20 GM TOP
[2021-08-10 11:16] VITALS: BP 151/76
--- NOTE | 2021-08-10 11:32 | NUR ---
Pain Clinic Assessment: 1. History of Osteoarthritis: BACK History of Rheumatoid Arthritis: Not Applicable 2. Height: 5 ft. 10 in. 177.8 cm. Weight: 213.4 lb. oz. 96.798 kg. Patient's BMI: 30.6 3. Vital Signs: BP: 151/76 Pulse: 59 Resp: 16 Temp: 02 Sat: 96 ECG Mon: 4. Pain Intensity: 6 rest 7 with walking 5. Fall Risk: Dizziness: N Needs help standing or walking: N Fallen in the last 3 months: N Fall risk comments: 6. Patient on Blood Thinner: None 7. History of Hypertension: Y 8. Opioid Therapy greater than 6 weeks: Y Opiate Contract Signed: 10/31/17 9. Risk Assessment Tool Provided: LOW RISK 1 10. Functional Assessment Tool: 50/ 11. Recreational Drug Use: Never Drug Type: Tobacco Use: Former Smoker Tobacco Type: Amount or Packs/day: How Many Years: Alcohol Use: No Frequency: Quant:
== END ==
LOC: PAIN 10:02
PROVIDERS: ATTEND Anesthesiology Pain Medicine
DX: M51.27 Other intervertebral disc displacement, lumbosacral region (principal); M25.511 Pain in right shoulder; M25.521 Pain in right elbow; Z96.642 Presence of left artificial hip joint; Z87.891 Personal history of nicotine dependence; Z88.0 Allergy status to penicillin; Z79.899 Other long term (current) drug therapy

== ENCOUNTER → 2021-10-05 | Outpatient (CLI) | payer OTHER ==
[~2021-10-05] VITALS: Ht 177.8 cm; Wt 99.4 kg
[2021-10-05 11:39] VITALS: BP 116/69
--- NOTE | 2021-10-05 11:42 | NUR ---
Pain Clinic Assessment: 1. History of Osteoarthritis: BACK History of Rheumatoid Arthritis: Not Applicable 2. Height: 5 ft. 10 in. 177.8 cm. Weight: 219.2 lb. oz. 99.429 kg. Patient's BMI: 31.5 3. Vital Signs: BP: 116/69 Pulse: 54 Resp: 16 Temp: 02 Sat: 97 ECG Mon: 4. Pain Intensity: 7 5. Fall Risk: Dizziness: N Needs help standing or walking: N Fallen in the last 3 months: N Fall risk comments: 6. Patient on Blood Thinner: None 7. History of Hypertension: Y 8. Opioid Therapy greater than 6 weeks: Y Opiate Contract Signed: 10/31/17 9. Risk Assessment Tool Provided: LOW RISK 1 10. Functional Assessment Tool: 50/70 11. Recreational Drug Use: Never Drug Type: Tobacco Use: Former Smoker Tobacco Type: Amount or Packs/day: How Many Years: Alcohol Use: No Frequency: Quant:
== END ==
LOC: PAIN 08:55
PROVIDERS: ATTEND Anesthesiology Pain Medicine
DX: M47.27 Other spondylosis with radiculopathy, lumbosacral region (principal); G89.29 Other chronic pain; M25.511 Pain in right shoulder; Z96.642 Presence of left artificial hip joint; Z87.891 Personal history of nicotine dependence; Z88.0 Allergy status to penicillin; Z79.899 Other long term (current) drug therapy